=== PATIENT | male | born 1940 | race Caucasian/White ===

== ENCOUNTER 2023-11-12 11:57 | Day surgery (SDC) | payer MEDICARE, OTHER, SELFPAY ==
[2023-11-07 15:15] VITALS: BMI 27.0
[2023-11-08 09:05] VITALS: BMI 27.0
--- NOTE | 2023-11-09 09:55 | HO.ANESPROP2 ---
Documented by User: Ayse Fraire NP 11/09/23 09:55 HPI - Anesthesia Eval Consult details Narrative: 83yo M for Left Cataract Extraction IOL Insertion PCP cleared No previous cataract on record Eliquis for afib PMFSH Past Medical History Medical History (Updated 11/07/23 @ 15:24 by Rosalba Coronado, STACEY) TIA (transient ischemic attack) Bladder cancer Ischemic cardiomyopathy Thoracic aortic aneurysm Myocardial infarction Back pain Elevated cholesterol Gout HTN (hypertension) Dementia CAD (coronary artery disease) BPH (benign prostatic hyperplasia) Afib Surgical History Surgical History (Updated 11/07/23 @ 15:18 by Rosalba Coronado, STACEY) Hx of cholecystectomy Hx of inguinal hernia repair Hx of heart artery stent Social History Social History (Updated 11/07/23 @ 15:20 by Rosalba Coronado RN) Household Members: Spouse Patient Tobacco Use Status: Never used Tobacco Use of substances other than those prescribed or required for medical reasons: No Advance Directives: No Advance Directives Information Provided: Yes Advance Directives on File: No Nutrition Risks: Surgical patient >75years Meds Allergies Allergy/AdvReac Type Severity Reaction Status Date / Time No Known Allergies Allergy Verified 11/12/23 14:23 Home Medications ?Medication ?Instructions ?Recorded ?Confirmed ?Last Taken ?Type allopurinol 100 mg tablet 100 mg PO DAILY 11/07/23 11/07/23 Unknown History amlodipine 5 mg tablet 5 mg PO DAILY 11/07/23 11/07/23 11/12/23 08:00 History apixaban 2.5 mg tablet (Eliquis) 2.5 mg PO BID 11/07/23 11/07/23 Unknown History atorvastatin 40 mg tablet 40 mg PO DAILY 11/07/23 11/07/23 Unknown History finasteride 5 mg tablet 5 mg PO DAILY 11/07/23 11/07/23 Unknown History metoprolol succinate 100 mg 100 mg PO DAILY 11/07/23 11/07/23 11/12/23 08:00 History tablet,extended release 24 hr vitamin B complex 1 tab PO DAILY 11/07/23 11/07/23 Unknown History Exam Height,Weight and Vital Signs: Height 5 ft 9.69 in Weight 84.6 kg Assessment and Plan Assessment Anesthesia Assessment: Chart Reviewed Documented by User: Qian Mendez MD 11/12/23 14:32 [facility] Past Medical History Medical History (Updated 11/07/23 @ 15:24 by Rosalba Coronado RN) TIA (transient ischemic attack) Bladder cancer Ischemic cardiomyopathy Thoracic aortic aneurysm Myocardial infarction Back pain Elevated cholesterol Gout HTN (hypertension) Dementia CAD (coronary artery disease) BPH (benign prostatic hyperplasia) Afib Family History Family history of problems with anesthesia: No Surgical History Surgical History (Updated 11/07/23 @ 15:18 by Rosalba Coronado RN) Hx of cholecystectomy Hx of inguinal hernia repair Hx of heart artery stent History of Problems with Anesthesia: No Social History Social History (Updated 11/07/23 @ 15:20 by Rosalba Coronado RN) Household Members: Spouse Patient Tobacco Use Status: Never used Tobacco Use of substances other than those prescribed or required for medical reasons: No Advance Directives: No Advance Directives Information Provided: Yes Advance Directives on File: No Nutrition Risks: Surgical patient >75years Meds Allergies Allergy/AdvReac Type Severity Reaction Status Date / Time No Known Allergies Allergy Verified 11/12/23 14:23 Home Medications ?Medication ?Instructions ?Recorded ?Confirmed ?Last Taken ?Type allopurinol 100 mg tablet 100 mg PO DAILY 11/07/23 11/07/23 Unknown History amlodipine 5 mg tablet 5 mg PO DAILY 11/07/23 11/07/23 11/12/23 08:00 History apixaban 2.5 mg tablet (Eliquis) 2.5 mg PO BID 11/07/23 11/07/23 Unknown History atorvastatin 40 mg tablet 40 mg PO DAILY 11/07/23 11/07/23 Unknown History finasteride 5 mg tablet 5 mg PO DAILY 11/07/23 11/07/23 Unknown History metoprolol succinate 100 mg 100 mg PO DAILY 11/07/23 11/07/23 11/12/23 08:00 History tablet,extended release 24 hr vitamin B complex 1 tab PO DAILY 11/07/23 11/07/23 Unknown History Exam Airway Mallampati Class: II TM Dist: >3cm Neck ROM: Full Heart: rrr Lungs: cta Assessment and Plan Assessment Anesthesia Assessment: Anesthesia Plan Discussed Final Anesthetic Review Family History of Problems with Anesthesia: No History of Problems with Anesthesia: No NPO: Yes ASA Class: III Final Preanesthetic Review: No Changes in Pt Med Stat, Meds/Allgs Chart Reviewed and Consent Obtained/Reviewed Patient Risk: Low Procedure Risk: Low Anesthetic Plan Anesthetic Plan: MAC: Disposition: Standard PACU
[2023-11-12 14:45] VITALS: BP 121/82; PULSE 58; RESP 16; TEMP 36.9; O2SAT 98
[2023-11-12] MEDS: Tetracaine HCl/PF 0.5% Oph Sol 4 ML DROPS 1 DROP EYE-LEFT (14:52)
[2023-11-12] MEDS: Lactated Ringers 500 ML 50 ML IV (14:52)
[2023-11-12] MEDS: Cyclopentolate 1 % Ophth Sol 2 ML DRPBTL 1 DROP EYE-LEFT ×3 (14:54→15:03)
[2023-11-12] MEDS: Tropicamide 1 % Ophth Sol 3 ML BTL 1 DROP EYE-LEFT ×3 (14:55→15:04)
[2023-11-12] MEDS: Ketorolac Tromethamine 0.5% Op 5 ML DROPS 1 DROP EYE-LEFT ×3 (14:56→15:04)
[2023-11-12] MEDS: Phenylephrine HCL 2.5% Oph SoL 2 ML BOTTLE 1 DROP EYE-LEFT ×3 (14:58→15:05)
--- NOTE | 2023-11-12 16:05 | MHC.SHP ---
Pre-Procedural Eval Section A - 24 Hr Update-Section A only Date of Service: 11/12/23 The patient is an INPATIENT: No Changes since office visit: No Cold of Flu in the past 2 weeks, No New Medical Problems, No Changes in Medication and No Patient answered all questions The patient has been examined within 24 hours of the surgical procedure. The History & Physical has been completed within 30 days and I have reviewed it.: Yes Section B - Complete if H&P > 30 days Chief Complaint: Age-related nuclear cataract, left eye Allergies: Allergies Allergy/AdvReac Type Severity Reaction Status Date / Time No Known Allergies Allergy Verified 11/12/23 14:23 Plan Diagnosis/Plan: Unchanged I have reviewed the history and physical and performed a pertinent physical examination on my patient. No changes have occurred unless specified. Time Spent With Patient Time: Total time managing care of this patient today ____ minutes.
--- NOTE | 2023-11-12 16:07 | HO.PNOPHT ---
Ophthalmology Procedure Procedure Date of Service: 11/12/23 Ophthalmology Viscoelastic: Healon Duet Dual Pack Pro Ophthalmology Lenses: IOL Acrysof MP - MA60AC (16.5) Procedure Notes: PREOPERATIVE DIAGNOSIS: Decreased visual acuity left eye secondary to cataract POSTOPERATIVE DIAGNOSIS: Same PROCEDURE: Left cataract extraction with intraocular lens insertion SURGEON: Isacc London M.D. ANESTHESIA: Topical/MAC ESTIMATED BLOOD LOSS: None COMPLICATIONS: None After obtaining informed consent, the patient was brought to the operation room suite and placed in the supine position. After adequate sedation per anesthesia, topical drops of Tetracaine were given to the left eye. The eye was then prepped and draped in the usual sterile fashion. The operating room microscope was then positioned over the operative eye and a lid speculum placed. A paracentesis was created. Viscoelastic was then instilled into the anterior chamber. A three plane incision was then created temporally, utilizing a 2.85 mm keratome. Capsulotomy forceps were then utilized to create a circular tear capsulotomy. Hydrodissection and hydrodelineation were carried out until adequate mobilization of the nucleus occurred. Phacoemulsification was then utilized to remove the dense central nucleus followed by removal of the cortical material utilizing the automated aspiration irrigation unit. Viscoat elastic was instilled into the posterior capsular bag followed by placement of a posterior chamber intraocular lens without difficulty. The residual Viscoat elastic was then removed utilizing the automated IA machine. The wound was check and found to be watertight. The patient tolerated the procedure well and the lid speculum was removed. Intracameral injection of Vigamox 0.1 mL followed by a subtenon injection of Kenalog-40 0.2 mL were administered. The patient will be seen in the a.m.
[2023-11-12 17:02] VITALS: BP 133/81; PULSE 78; RESP 18; TEMP 36.6; O2SAT 99
== END 2023-11-12 17:05 | disposition home or self-care (01) ==
PROVIDERS: PCP Family Medicine; Visit Provider Ophthalmology
PROC: (CPT 66985; principal; 2023-11-12 12:10)
DX: H25.12 Age-related nuclear cataract, left eye (principal); H54.7 Unspecified visual loss; H43.393 Other vitreous opacities, bilateral; H52.13 Myopia, bilateral; I78.1 Nevus, non-neoplastic; I10 Essential (primary) hypertension; I48.0 Paroxysmal atrial fibrillation; I25.10 Atherosclerotic heart disease of native coronary artery without angina pectoris; Z95.5 Presence of coronary angioplasty implant and graft; F03.90 Unspecified dementia, unspecified severity, without behavioral disturbance, psychotic disturbance, mood disturbance, and anxiety; Z79.01 Long term (current) use of anticoagulants; Z79.899 Other long term (current) drug therapy; Z87.891 Personal history of nicotine dependence
CPT/HCPCS: 66984; J2250; J3010; J3301; V2630

== ENCOUNTER 2023-11-26 10:14 | Day surgery (SDC) | payer MEDICARE, OTHER, SELFPAY ==
[2023-11-08 09:08] VITALS: BMI 27.0
[2023-11-26 10:25] VITALS: BP 132/86; PULSE 89; RESP 18; TEMP 36.9; O2SAT 97
[2023-11-26] MEDS: Phenylephrine HCL 2.5% Oph SoL 2 ML BOTTLE 1 DROP EYE-RIGHT ×3 (10:43→10:45)
[2023-11-26] MEDS: Cyclopentolate 1 % Ophth Sol 2 ML DRPBTL 1 DROP EYE-RIGHT ×3 (10:43→10:45)
[2023-11-26] MEDS: Ketorolac Tromethamine 0.5% Op 10 ML DROPS 1 DROP EYE-RIGHT ×3 (10:43→10:45)
[2023-11-26] MEDS: Tetracaine HCl/PF 0.5% Oph Sol 4 ML DROPS 1 DROP EYE-RIGHT (10:43)
[2023-11-26] MEDS: Lactated Ringers 500 ML 50 ML IV (10:43)
[2023-11-26] MEDS: Tropicamide 1 % Ophth Sol 3 ML BTL 1 DROP EYE-RIGHT ×3 (10:43→10:45)
--- NOTE | 2023-11-26 11:00 | HO.ANESPROP2 ---
Documented by User: Ayse Fraire NP 11/22/23 13:44 HPI - Anesthesia Eval Consult details Narrative: 83yo M for Right Cataract Extraction IOL Insertion Left eye 11/12/23: Fent 50, Midaz 1 Eliquis for afib PMFSH Past Medical History Medical History (Updated 11/07/23 @ 15:24 by Rosalba Coronado RN) TIA (transient ischemic attack) Bladder cancer Ischemic cardiomyopathy Thoracic aortic aneurysm Myocardial infarction Back pain Elevated cholesterol Gout HTN (hypertension) Dementia CAD (coronary artery disease) BPH (benign prostatic hyperplasia) Afib Family History Family history of problems with anesthesia: No Surgical History Surgical History (Updated 11/07/23 @ 15:18 by Rosalba Coronado RN) Hx of cholecystectomy Hx of inguinal hernia repair Hx of heart artery stent History of Problems with Anesthesia: No Social History Social History (Updated 11/07/23 @ 15:20 by Rosalba Coronado RN) Household Members: Spouse Patient Tobacco Use Status: Never used Tobacco Use of substances other than those prescribed or required for medical reasons: No Advance Directives: No (unknown) Advance Directives Information Provided: Yes Nutrition Risks: Surgical patient >75years Meds Allergies Allergy/AdvReac Type Severity Reaction Status Date / Time No Known Allergies Allergy Verified 11/12/23 14:23 Home Medications ?Medication ?Instructions ?Recorded ?Confirmed ?Last Taken ?Type allopurinol 100 mg tablet 100 mg PO DAILY 11/07/23 11/07/23 Unknown History amlodipine 5 mg tablet 5 mg PO DAILY 11/07/23 11/12/23 11/12/23 History apixaban 2.5 mg tablet (Eliquis) 2.5 mg PO BID 11/07/23 11/07/23 Unknown History atorvastatin 40 mg tablet 40 mg PO DAILY 11/07/23 11/07/23 Unknown History finasteride 5 mg tablet 5 mg PO DAILY 11/07/23 11/07/23 Unknown History metoprolol succinate 100 mg 100 mg PO DAILY 11/07/23 11/12/23 11/12/23 History tablet,extended release 24 hr vitamin B complex 1 tab PO DAILY 11/07/23 11/07/23 Unknown History Exam Height,Weight and Vital Signs: Height 5 ft 9.69 in Weight 84.6 kg Assessment and Plan Assessment Anesthesia Assessment: Chart Reviewed Final Anesthetic Review Family History of Problems with Anesthesia: No History of Problems with Anesthesia: No Documented by User: Nesha Osei DO 11/26/23 11:03 [facility] Past Medical History Medical History (Updated 11/07/23 @ 15:24 by Rosalba Coronado RN) TIA (transient ischemic attack) Bladder cancer Ischemic cardiomyopathy Thoracic aortic aneurysm Myocardial infarction Back pain Elevated cholesterol Gout HTN (hypertension) Dementia CAD (coronary artery disease) BPH (benign prostatic hyperplasia) Afib Family History Family history of problems with anesthesia: No Surgical History Surgical History (Updated 11/07/23 @ 15:18 by Rosalba Coronado RN) Hx of cholecystectomy Hx of inguinal hernia repair Hx of heart artery stent History of Problems with Anesthesia: No Social History Social History (Updated 11/07/23 @ 15:20 by Rosalba Coronado RN) Household Members: Spouse Patient Tobacco Use Status: Never used Tobacco Use of substances other than those prescribed or required for medical reasons: No Advance Directives: No (unknown) Advance Directives Information Provided: Yes Nutrition Risks: Surgical patient >75years Meds Allergies Allergy/AdvReac Type Severity Reaction Status Date / Time No Known Allergies Allergy Verified 11/12/23 14:23 Home Medications ?Medication ?Instructions ?Recorded ?Confirmed ?Last Taken ?Type allopurinol 100 mg tablet 100 mg PO DAILY 11/07/23 11/07/23 Unknown History amlodipine 5 mg tablet 5 mg PO DAILY 11/07/23 11/12/23 11/12/23 History apixaban 2.5 mg tablet (Eliquis) 2.5 mg PO BID 11/07/23 11/07/23 Unknown History atorvastatin 40 mg tablet 40 mg PO DAILY 11/07/23 11/07/23 Unknown History finasteride 5 mg tablet 5 mg PO DAILY 11/07/23 11/07/23 Unknown History metoprolol succinate 100 mg 100 mg PO DAILY 11/07/23 11/12/23 11/12/23 History tablet,extended release 24 hr vitamin B complex 1 tab PO DAILY 11/07/23 11/07/23 Unknown History Exam Exam Date and Time: November 26, 2023 1100 Height,Weight and Vital Signs: Height 5 ft 9.69 in Weight 84.6 kg Height 5 ft 9.69 in Weight 84.6 kg Vital Signs Temperature 98.4 F 11/26/23 10:25 Pulse Rate 89 11/26/23 10:25 Respiratory Rate 18 11/26/23 10:25 Blood Pressure 132/86 11/26/23 10:25 Pulse Oximetry 97 11/26/23 10:25 Oxygen Delivery Method Room Air 11/26/23 10:25 Temperature 98.4 F 11/26/23 10:25 Pulse Rate 89 11/26/23 10:25 Respiratory Rate 18 11/26/23 10:25 Blood Pressure 132/86 11/26/23 10:25 Pulse Oximetry 97 11/26/23 10:25 Oxygen Delivery Method Room Air 11/26/23 10:25 Airway Mallampati Class: III TM Dist: >3cm Neck ROM: Full Loose/Missing/Broken Teeth: No (patient denies any loose or broken teeth) Heart: S1S2 Lungs: CTAB Assessment and Plan Assessment Anesthesia Assessment: Anesthesia Plan Discussed and Chart Reviewed Final Anesthetic Review Family History of Problems with Anesthesia: No History of Problems with Anesthesia: No NPO: Yes ASA Class: III Final Preanesthetic Review: No Changes in Pt Med Stat, Meds/Allgs Chart Reviewed, Consent Obtained/Reviewed and Anes Risks/Benef Reviewed Patient Risk: Intermediate Procedure Risk: Low Anesthetic Plan Anesthetic Plan: MAC: and Agree w/ Assess. and Plan Disposition: Standard PACU
--- NOTE | 2023-11-26 11:47 | MHC.SHP ---
Pre-Procedural Eval Section A - 24 Hr Update-Section A only Date of Service: 11/26/23 The patient is an INPATIENT: No Changes since office visit: No Cold of Flu in the past 2 weeks, No New Medical Problems, No Changes in Medication and No Patient answered all questions The patient has been examined within 24 hours of the surgical procedure. The History & Physical has been completed within 30 days and I have reviewed it.: Yes Section B - Complete if H&P > 30 days Chief Complaint: Age-related nuclear cataract, right eye Allergies: Allergies Allergy/AdvReac Type Severity Reaction Status Date / Time No Known Allergies Allergy Verified 11/12/23 14:23 Plan Diagnosis/Plan: Unchanged I have reviewed the history and physical and performed a pertinent physical examination on my patient. No changes have occurred unless specified. Time Spent With Patient Time: Total time managing care of this patient today ____ minutes.
--- NOTE | 2023-11-26 12:12 | P.PCNO_ITS ---
Ophthalmology Procedure Procedure Date of Service: 11/26/23 Ophthalmology Viscoelastic: Healon Duet Dual Pack Pro Ophthalmology Lenses: IOL Acrysof MP - MA60AC (17) Procedure Notes: PREOPERATIVE DIAGNOSIS: Decreased visual acuity right eye secondary to cataract POSTOPERATIVE DIAGNOSIS: Same PROCEDURE: Right cataract extraction with intraocular lens insertion SURGEON: Isacc London M.D. ANESTHESIA: Topical/MAC ESTIMATED BLOOD LOSS: None COMPLICATIONS: None After obtaining informed consent, the patient was brought to the operating room suite and placed in the supine position. After adequate sedation per anesthesia, topical drops of Tetracaine were given to the right eye. The eye was then prepped and draped in the usual sterile fashion. The operating room microscope was then positioned over the operative eye and a lid speculum placed. A paracentesis was created. Viscoelastic was then instilled into the anterior chamber. A three plane incision was then created temporally, utilizing a 2.85 mm keratome. Capsulotomy forceps were then utilized to create a circular tear capsulotomy. Hydrodissection and hydrodelineation were carried out until adequate mobilization of the nucleus occurred. Phacoemulsification was then utilized to remove the dense central nucl eus followed by removal of the cortical material utilizing the automated aspiration irrigation unit. Viscoelastic was instilled into the posterior capsular bag followed by placement of a posterior chamber intraocular lens without difficulty. The residual Viscoelastic was then removed utilizing the automated IA machine. The wound was checked and found to be watertight. The patient tolerated the procedure well and the lid speculum was removed. Intracameral injection of Vigamox 0.1 mL followed by a subtenon injection of Kenalog-40 0.2 mL were administered. The patient will be seen in the a.m.
[2023-11-26 12:46] VITALS: BP 143/94; PULSE 90; RESP 16; TEMP 36.5; O2SAT 97
== END 2023-11-26 12:48 | disposition home or self-care (01) ==
PROVIDERS: PCP Family Medicine; Visit Provider Ophthalmology
PROC: (CPT 66985; principal; 2023-11-26 11:50)
DX: H25.11 Age-related nuclear cataract, right eye (principal); I10 Essential (primary) hypertension
CPT/HCPCS: 66984; J3010; J3301; V2630

== ENCOUNTER 2024-01-03 15:25 | Inpatient (IN) | payer MEDICARE, OTHER, SELFPAY ==
[2024-01-03] VITALS (7 sets, daily range): BP systolic 115–151; BP diastolic 76–93; PULSE 83–114; RESP 15–19; TEMP 36.5–36.9; O2SAT 95–99; BMI 30.3
--- NOTE | ~2024-01-03 | XR_ITS ---
EXAMINATION: XR CHEST CLINICAL INFORMATION: Chest pain COMPARISON: None available. TECHNIQUE: Frontal view of the chest was obtained. FINDINGS: Overlying EKG wires. The lungs are adequately expanded. No focal consolidation. No pleural effusion, edema or pneumothorax. The cardiomediastinal silhouette is within normal limits. No acute osseous abnormality. XR/XR chest 1V IMPRESSION: No acute pulmonary disease.
--- NOTE | ~2024-01-03 | CT_ITS ---
EXAMINATION: CT HEAD WITHOUT CONTRAST CLINICAL INFORMATION: Change in mental status. Syncope. COMPARISON: None available. TECHNIQUE: Contiguous axial imaging was performed from the skull base to vertex without intravenous administration of contrast. This CT examination was performed using dose optimization techniques as appropriate, variously including the following: *Automated exposure control *Adjustment of mA and/or kV according to patient size (this includes techniques or standardized protocols for targeted exams where dose is matched to indication/reason for exam; i.e. extremities or head) *Use of iterative reconstruction technique DLP: 675 mGy-cm FINDINGS: There is no acute intracranial hemorrhage. There is no evidence of acute/subacute cerebral or cerebellar infarction. There is no midline shift or mass effect. No extra-axial fluid collection. There is mild microvascular ischemic change. The ventricles are normal in size. The ocular lenses are surgically absent. The orbits are otherwise unremarkable. The calvarium is intact. The mastoid air cells are well aerated. There are minimal scattered paranasal sinus mucosal disease. CT/CT head/brain wo IV con IMPRESSION: No acute intracranial pathology. Mild microvascular ischemic change.
[2024-01-03 15:43] LABS: Glucose, Whole Blood 117 mg/dL (60-115)
--- NOTE | 2024-01-03 15:48 | ECG_ITS ---
Test Reason : SYNCOPAL EPISODE Blood Pressure : / mmHG Vent. Rate : 095 BPM Atrial Rate : 000 BPM P-R Int : 000 ms QRS Dur : 114 ms QT Int : 386 ms P-R-T Axes : 000 -57 086 degrees QTc Int : 485 ms Atrial fibrillation Left anterior fascicular block Minimal voltage criteria for LVH, may be normal variant ( Carlock product ) Nonspecific ST and T wave abnormality Abnormal ECG No previous ECGs available Referred By: Marya Ramirez Electronically Signed By:Srini Kiser
--- NOTE | 2024-01-03 15:50 | MHC.EDTECH ---
This tech performed EKG at providers request. Before order was entered.
--- NOTE | 2024-01-03 15:59 | ED_ITS ---
HPI - Altered Mental Status General Chief Complaint: Altered Mental Status Stated Complaint: Period of unresponsiveness, respond to pain EMS Time Seen by Provider: 01/03/24 15:46 History of Present Illness HPI narrative: Patient is an 83-year-old male with a history of bladder cancer. History of ischemic cardiomyopathy. History of myocardial infarction. History of atrial fibrillation currently on Eliquis. History of dementia history of coronary artery disease presents today with having episodes of being found unresponsive. Patient was being found unresponsive on his next to the staircase. On EMS arrival patient was very extremely difficult to arouse. Attempted a sternal rub no avail. Patient is noted to have a sugar in the 130s range. Sent to the ED. Upon getting on the ambulance patient became more awake alert. Upon arrival patient is now awake alert oriented unsure as to what exactly transpired. No history of seizures in the past. No fever no chills. No coughing or congestion or upper respiratory symptoms. Nothing similar in the past. Patient is unsure of what the events that transpired today. TIA (transient ischemic attack) Bladder cancer Ischemic cardiomyopathy Thoracic aortic aneurysm Myocardial infarction Back pain Elevated cholesterol Gout HTN (hypertension) Dementia CAD (coronary artery disease) BPH (benign prostatic hyperplasia) Afib Related Data Home Medications ?Medication ?Instructions ?Recorded ?Confirmed allopurinol 100 mg tablet 100 mg PO DAILY 11/07/23 11/07/23 amlodipine 5 mg tablet 5 mg PO DAILY 11/07/23 11/12/23 apixaban 2.5 mg tablet (Eliquis) 2.5 mg PO BID 11/07/23 11/07/23 atorvastatin 40 mg tablet 40 mg PO DAILY 11/07/23 11/07/23 finasteride 5 mg tablet 5 mg PO DAILY 11/07/23 11/07/23 metoprolol succinate 100 mg 100 mg PO DAILY 11/07/23 11/12/23 tablet,extended release 24 hr vitamin B complex 1 tab PO DAILY 11/07/23 11/07/23 Allergies Allergy/AdvReac Type Severity Reaction Status Date / Time No Known Allergies Allergy Verified 01/03/24 15:46 Review of Systems 2 Review of Systems: Positive generalized malaise Positive episode of being unresponsive PMFSH Past Medical History Attestation statement: The following information was validated with the patient. Medical History TIA (transient ischemic attack) Bladder cancer Ischemic cardiomyopathy Thoracic aortic aneurysm Myocardial infarction Back pain Elevated cholesterol Gout HTN (hypertension) Dementia CAD (coronary artery disease) BPH (benign prostatic hyperplasia) Afib Surgical History Hx of cholecystectomy Hx of inguinal hernia repair Hx of heart artery stent Social History Social History Household Members: Spouse Patient Tobacco Use Status: Never used Tobacco Smoked in Last 30 Days: No Use of substances other than those prescribed or required for medical reasons: No Advance Directives: Yes Advance Directives Information Provided: No Advance Directives on File: No Physical Exam ED Vital Signs: Vital Signs - 24 hr 01/03/24 15:39 01/03/24 18:33 Temperature 97.7 F 98.5 F Pulse Rate 87 97 Respiratory Rate 18 18 Blood Pressure 115/76 141/88 H Pulse Oximetry 99 98 Oxygen Delivery Method Room Air Room Air BMI result Body Mass Index 30.3 Appearance: Alert. Oriented X3. No acute distress. Eyes: Pupils equal, round and reactive to light. ENT: Pharynx normal. Neck: Normal inspection. Neck supple. No lymph nodes noted. No crepitus CVS: Normal heart rate and rhythm. Pulses normal. Normal S1 and S2 Respiratory: No respiratory distress. Breath sounds normal. No Wheezing. No rales Abdomen: Soft and nontender. No rigidity. No distention. good BS x4 Skin: Skin warm and dry. Normal skin color. Normal skin turgor. Extremities: No lower extremity edema. Neurovascular intact to all extremities. No Lacerations. No Rash Neuro: Oriented X 3. No motor deficit. No sensory deficit. Moving all extermities. No slurred speech Medications Administered Discontinued Medications Generic Name Dose Route Start Last Admin Trade Name Freq PRN Reason Stop Dose Admin Sodium Chloride 500 mls @ 999 mls/hr 01/03/24 16:00 01/03/24 17:37 Ns IV 01/03/24 16:30 Infused .Q31M MORIAH Infusion Sodium Chloride 500 mls @ 999 mls/hr 01/03/24 16:30 01/03/24 17:37 Ns IV 01/03/24 17:00 999 mls/hr .Q31M MORIAH Administration Medical Decision Making Medical Decision Making MDM Narrative: Patient had a syncopal episode was found on the ground. On EMS arrival patient was unresponsive. Upon arrival in the ED patient is now awake alert. Discussed with family patient's mental status is proximally baseline has a history of AFib patient's EKG consistent with atrial fibrillation he is on blood thinners a CT scan of the head was done it showed no evidence of bleeding by my interpretation. X-ray showed no acute focal infiltrate. Patient's lactate was 2.1 less likely patient had a seizure patient does not have any signs of infection after a bolus of 1 L of fluid patient's lactate was 1.6. Patient's symptoms not consistent with sepsis. Thyroid was normal patient's troponin is normal monitor in the ED will admit patient for further evaluation. Case consulted by the hospitalist team Differential Diagnosis Differential Diagnoses: The differential diagnosis associated with the presentation includes Syncope, head injury, arrhythmia, ACS Admission/Observation Consideration of admission/observation: Escalation of care including admission/observation considered Consult Healthcare Provider Management of the patient was discussed with: Hospitalist Lab Data [facility] Lab Attestation statement: I reviewed the patient's lab results. 01/03/24 15:55 01/03/24 15:55 Labs: Lab Results 01/03/24 01/03/24 01/03/24 Range/Units 15:36 15:55 16:17 WBC 7.1 (4.8-10.8) X10*3/uL RBC 4.73 (4.60-5.80) X10*6/uL Hgb 16.0 (14.0-18.0) g/dl Hct 45.1 (42.0-52.0) % MCV 95.3 (80.0-98.0) fL MCH 33.8 H (27.0-33.0) pg MCHC 35.5 (31.0-36.0) g/dl RDW 13.5 (11.0-16.0) % Plt Count 195 (160-400) X10*3/uL MPV 9.5 (9.4-12.4) fL Immature Gran % (Auto) 0.3 (0.0-0.4) % Neut % (Auto) 70.7 (45-73) % Lymph % (Auto) 20.6 (20-40) % [place] % (Auto) 6.6 (2-11) % Eos % (Auto) 1.1 (0-4) % Baso % (Auto) 0.7 (0-2) % Lymph # (Auto) 1.5 (1.2-4.9) X10*3/uL [place] # (Auto) 0.5 (0.1-1.2) X10*3/uL Eos # (Auto) 0.1 (0.0-0.4) X10*3/uL Baso # (Auto) 0.1 (0.0-0.2) X10*3/uL Abs Immat Gran (auto) 0.02 (0.00-0.03) X10*3/uL Absolute Neuts (auto) 5.0 (2.0-8.3) x10*3/uL Absolute Nucleated RBC 0.000 (0.0-0.012) X10*3/uL Nucleated RBC % (auto) 0.0 (0.0-0.2) /100WBC PT 16.9 H (11.1-13.3) SEC INR 1.4 H (0.9-1.1) Sodium 141 (135-145) mmol/L Potassium 4.3 (3.3-5.1) mmol/L Chloride 110 H (96-108) mmol/L Carbon Dioxide 22 (22-29) mmol/L Anion Gap 13 (12-20) BUN 19 H (9-16) mg/dL Creatinine 1.68 H (0.5-1.4) mg/dL Estim Creat Clear Calc 32.3 Estimated GFR 39 POC Glucose 117 H (60-115) mg/dL Random Glucose 123 H (60-115) mg/dL Lactic Acid 2.1 H* (0.5-2.0) mmol/L Lactic Acid F/U @ 2Hr (0.5-2.0) mmol/L Calcium 9.3 (8.4-10.2) mg/dL Total Bilirubin 2.0 H (0.0-1.0) mg/dL Direct Bilirubin 0.2 (0.0-0.5) mg/dL AST 27 (5-37) U/L ALT 23 (0-40) U/L Alkaline Phosphatase 74 (39-117) U/L Ammonia 29 (13-55) umol/L Troponin I High Sens 8.1 (<3.5-35.0) ng/L Total Protein 7.2 (6.5-8.0) g/dL Albumin 4.3 (3.5-5.0) g/dL Lipase 21 (8-78) U/L TSH 1.47 (0.32-4.0) uIU/mL Urine Color Urine Appearance Urine pH (5.0-9.0) Ur Specific [place] (1.005-1.025) Urine Protein (Neg-Trace) mg/dL Urine Glucose (UA) (Negative) mg/dL Urine Ketones (Negative) mg/dL Urine Blood (Negative) Urine Nitrite (Negative) Ur Leukocyte Esterase (Negative) Urine RBC (0-2) /HPF Urine WBC (0-5) /HPF Ur Squamous Epith Cells (0-2) /HPF Urine Bacteria (None Seen) Hyaline Casts (0-2) /LPF 01/03/24 01/03/24 Range/Units 18:28 18:30 WBC (4.8-10.8) X10*3/uL RBC (4.60-5.80) X10*6/uL Hgb (14.0-18.0) g/dl Hct (42.0-52.0) % MCV (80.0-98.0) fL MCH (27.0-33.0) pg MCHC (31.0-36.0) g/dl RDW (11.0-16.0) % Plt Count (160-400) X10*3/uL MPV (9.4-12.4) fL Immature Gran % (Auto) (0.0-0.4) % Neut % (Auto) (45-73) % Lymph % (Auto) (20-40) % [place] % (Auto) (2-11) % Eos % (Auto) (0-4) % Baso % (Auto) (0-2) % Lymph # (Auto) (1.2-4.9) X10*3/uL [place] # (Auto) (0.1-1.2) X10*3/uL Eos # (Auto) (0.0-0.4) X10*3/uL Baso # (Auto) (0.0-0.2) X10*3/uL Abs Immat Gran (auto) (0.00-0.03) X10*3/uL Absolute Neuts (auto) (2.0-8.3) x10*3/uL Absolute Nucleated RBC (0.0-0.012) X10*3/uL Nucleated RBC % (auto) (0.0-0.2) /100WBC PT (11.1-13.3) SEC INR (0.9-1.1) Sodium (135-145) mmol/L Potassium (3.3-5.1) mmol/L Chloride (96-108) mmol/L Carbon Dioxide (22-29) mmol/L Anion Gap (12-20) BUN (9-16) mg/dL Creatinine (0.5-1.4) mg/dL Estim Creat Clear Calc Estimated GFR POC Glucose (60-115) mg/dL Random Glucose (60-115) mg/dL Lactic Acid (0.5-2.0) mmol/L Lactic Acid F/U @ 2Hr 1.6 (0.5-2.0) mmol/L Calcium (8.4-10.2) mg/dL Total Bilirubin (0.0-1.0) mg/dL Direct Bilirubin (0.0-0.5) mg/dL AST (5-37) U/L ALT (0-40) U/L Alkaline Phosphatase (39-117) U/L Ammonia (13-55) umol/L Troponin I High Sens (<3.5-35.0) ng/L Total Protein (6.5-8.0) g/dL Albumin (3.5-5.0) g/dL Lipase (8-78) U/L TSH (0.32-4.0) uIU/mL Urine Color Yellow Urine Appearance Clear Urine pH 5.5 (5.0-9.0) Ur Specific [place] 1.015 (1.005-1.025) Urine Protein Negative (Neg-Trace) mg/dL Urine Glucose (UA) Negative (Negative) mg/dL Urine Ketones Negative (Negative) mg/dL Urine Blood Negative (Negative) Urine Nitrite Negative (Negative) Ur Leukocyte Esterase Negative (Negative) Urine RBC 0-2 (0-2) /HPF Urine WBC 0-5 (0-5) /HPF Ur Squamous Epith Cells 0-2 (0-2) /HPF Urine Bacteria None Seen (None Seen) Hyaline Casts 3-5 (0-2) /LPF Independent Interpretation I performed an independent interpretation of an: EKG (Atrial fibrillation heart rate is 100), Plain X-Ray (Chest x-ray showed no focal infiltrate) and CT Scan (CT scan of the head was grossly negative for any acute evidence of bleeding) Radiology Impression Discussion of test interpretation with radiology: I have reviewed the radiologist's reading. Independent Historian Clinical information obtained from an independent historian. History obtained from or confirmed by: EMS External Record Review External record reviewed: Inpatient record Discharge Plan Discharge Prescriptions: No Action atorvastatin 40 mg tablet 40 mg PO DAILY metoprolol succinate 100 mg tablet extended release 24 hr 100 mg PO DAILY amlodipine 5 mg tablet 5 mg PO DAILY allopurinol 100 mg tablet 100 mg PO DAILY vitamin B complex Tablet 1 tab PO DAILY finasteride 5 mg tablet 5 mg PO DAILY Eliquis 2.5 mg tablet 2.5 mg PO BID Print Language: Beninese
[2024-01-03 16:02] LABS: MANUAL DIFF FLAG NO
[2024-01-03 16:04] LABS: Basophils Absolute Auto 0.1 X10*3/uL (0.0-0.2); Basophils Percent Auto 0.7 % (0-2); Eosinophils Absolute Auto 0.1 X10*3/uL (0.0-0.4); Eosinophils Percent Auto 1.1 % (0-4); Hematocrit 45.1 % (42.0-52.0); Imm Gran Abs Auto 0.02 X10*3/uL (0.00-0.03); Imm Gran Pct Auto 0.3 % (0.0-0.4); Lymphocytes Absolute Auto 1.5 X10*3/uL (1.2-4.9); Lymphocytes Percent Auto 20.6 % (20-40); Mean Corpuscular HGB Conc 35.5 g/dl (31.0-36.0); Mean Corpuscular Hemoglobin 33.8 pg (27.0-33.0); Mean Corpuscular Volume 95.3 fL (80.0-98.0); Mean Platelet Volume 9.5 fL (9.4-12.4); Monocytes Absolute Auto 0.5 X10*3/uL (0.1-1.2); Monocytes Percent Auto 6.6 % (2-11); Neutrophils Percent Auto 70.7 % (45-73); Platelet Count 195 X10*3/uL (160-400); Red Blood Count 4.73 X10*6/uL (4.60-5.80); Red Cell Distribution Width 13.5 % (11.0-16.0); White Blood Count 7.1 X10*3/uL (4.8-10.8)
[2024-01-03 16:19] LABS: Alanine Aminotransferase 23 U/L (0-40); Albumin Level 4.3 g/dL (3.5-5.0); Alkaline Phosphatase 74 U/L (39-117); Anion Gap 13 (12-20); Aspartate Amino Transferase 27 U/L (5-37); Bilirubin Direct 0.2 mg/dL (0.0-0.5); Blood Urea Nitrogen 19 mg/dL (9-16); Calcium 9.3 mg/dL (8.4-10.2); Carbon Dioxide 22 mmol/L (22-29); Chloride 110 mmol/L (96-108); Creatinine Clr Calc Pharmacy 32.3; Estimated Glomerular Filt Rate 39; Glucose Random 123 mg/dL (60-115); Lactic Acid 2.1 mmol/L (0.5-2.0); Lipase 21 U/L (8-78); Potassium 4.3 mmol/L (3.3-5.1); Sodium 141 mmol/L (135-145); Total Protein 7.2 g/dL (6.5-8.0)
[2024-01-03 16:26] LABS: Troponin-I High Sensitivity 8.1 ng/L (<3.5-35.0)
[2024-01-03 16:31] LABS: Ammonia 29 umol/L (13-55); INTERNATIONAL NORM RATIO 1.4 (0.9-1.1); Prothrombin Time 16.9 SEC (11.1-13.3)
[2024-01-03 16:40] LABS: TSH reflex Free T4 1.47 uIU/mL (0.32-4.0)
[2024-01-03] MEDS: 0.9 % Sodium Chloride 500 ML 999 ML IV ×2 (17:06→17:37)
[2024-01-03 18:00] LABS: Reflex Lactate? Lactic Acid Added
--- NOTE | 2024-01-03 18:42 | MHC.EDTECH ---
Hourly rounds and vitals completed, condom catheter was put on, patient is resting comfortably now
[2024-01-03 18:45] LABS: ~Lactic Acid-LAB USE ONLY 1.6 mmol/L (0.5-2.0)
[2024-01-03 18:47] LABS: Appearance Urine Clear; Color Urine Yellow; Glucose Urine UA Negative (Negative); Leukocyte Esterase Urine Negative (Negative); Nitrite Urine Negative (Negative); PH 5.5 (5.0-9.0); Specific Gravity - Urine 1.015 (1.005-1.025); Urine Blood Negative (Negative); Urine Ketones Negative (Negative); Urine Protein Negative (Neg-Trace)
--- NOTE | 2024-01-03 19:10 | PC.NURSE ---
spoke w son: pt alert and oriented to person/place at baseline per son sounds like pts mental status is WNL. per son pt over exerted himself in the heat this afternoon trying to move a trash can and had syncopal shortly after. pt has been advised by family members to avoid heat and drink flds and gatorade. pt resting quietly, denies any needs at this time.
[2024-01-03 19:17] LABS: Bacteria Urine None Seen (None Seen); RBC Urine 0-2 /HPF (0-2); Squamous Epithelial Cell Urine 0-2 /HPF (0-2); WBC Urine 0-5 /HPF (0-5)
--- NOTE | 2024-01-03 20:27 | PHA.MEDREC ---
Pharmacy Consult ? Medication Reconciliation Pharmacy has completed the medication reconciliation. Spoke to Patient anny Vargas to confirm med list.
--- NOTE | 2024-01-03 20:36 | P.HPHOSP_ITS ---
History of Present Illness Date of Service: 01/03/24 Attending physician on admission: Js Brooks Chief Complaint: Loss of consciousness Clint Jane is a very pleasant 83 years old man with past medical history significant for CAD, cardiomyopathy, atrial fibrillation on chronic anticoagulation with Eliquis essential hypertension was brought to the emergency department via EMS after he fainted today. He was found by his who called EMS. The patient is a vague historian. I spoke with his son, Sam, over the phone who provided most of the patient past medical history and HPI. Son stated that when he is that returned to the house and seated on his lifting shortness he lost consciousness. The patient does not remember what happened and denied any symptoms such as headache, palpitations, chest pain, cough, nausea, vomiting, diarrhea, abdominal pain dizziness or shortness on breath. In the ED, he was found to have rapid atrial fibrillation. Last blood pressure is 151/93. Blood workup showed normal white count, hemoglobin platelets. There are no significant electrolyte imbalances. Creatinine is 1.68 (will investigate his baseline). His initial lactic acid was 2.1 is normalized. Ammonia, troponin, albumin, TSH and LFTs are normal. Urinalysis showed no evidence of urinary tract infection. ECG showed atrial fibrillation. CXR is negative. Head CT scan showed no acute intracranial abnormalities. ED tx: NS 2 L bolus. Review of Systems 2 Review of Systems: Yes Unobtainable due to mental status [facility] Medical History TIA (transient ischemic attack) Bladder cancer Ischemic cardiomyopathy Thoracic aortic aneurysm Myocardial infarction Back pain Elevated cholesterol Gout HTN (hypertension) Dementia CAD (coronary artery disease) BPH (benign prostatic hyperplasia) Afib Surgical History Hx of cholecystectomy Hx of inguinal hernia repair Hx of heart artery stent Social History Household Members: Spouse Patient Tobacco Use Status: Never used Tobacco Smoked in Last 30 Days: No Use of substances other than those prescribed or required for medical reasons: No Advance Directives: Yes Advance Directives Information Provided: No Advance Directives on File: No Nutrition Risks: No Nutritional Risk Meds Allergies Allergy/AdvReac Type Severity Reaction Status Date / Time No Known Allergies Allergy Verified 01/03/24 15:46 Active Medications: Current Medications Acetaminophen (Acetaminophen 325 Mg Tablet) 975 mg PO Q6H PRN PRN Reason: Pain, Mild (Pain Scale 1-3), fever or headache Melatonin (Melatonin 3 Mg Tablet) 6 mg PO BEDTIME PRN PRN Reason: Insomnia Sodium Chloride (0.9 % Sodium Chloride Flush 3 Ml Syringe) 3 ml IVFLUSH QSHIFT [facility] Home Medications ?Medication ?Instructions ?Recorded ?Confirmed ?Last Taken ?Type allopurinol 100 mg tablet 100 mg PO DAILY 11/07/23 01/03/24 01/03/24 History apixaban 2.5 mg tablet (Eliquis) 2.5 mg PO BID 11/07/23 01/03/24 01/03/24 History atorvastatin 40 mg tablet 40 mg PO DAILY 11/07/23 01/03/24 01/03/24 History finasteride 5 mg tablet 5 mg PO DAILY 11/07/23 01/03/24 01/03/24 History metoprolol succinate 100 mg 100 mg PO DAILY 11/07/23 01/03/24 01/03/24 History tablet,extended release 24 hr vitamin B complex 1 tab PO DAILY 11/07/23 01/03/24 01/03/24 History amlodipine 2.5 mg tablet 2.5 mg PO DAILY 01/03/24 01/03/24 01/03/24 History Physical Exam 2 Vital Signs and Narrative: Vital Signs: Last Vital Signs Temp 98.5 F 01/03/24 18:33 Pulse 83 01/03/24 19:53 Resp 15 01/03/24 19:53 BP 151/93 H 01/03/24 19:53 Pulse Ox 97 01/03/24 19:53 O2 Del Method Room Air 01/03/24 19:53 BMI result Body Mass Index 30.3 Constitutional - Awake and Alert, No apparent distress. He is anxious as he is worried about this son and . Very talkative and pleasant. HEENT - PERRL, EOMI. Dry oral mucosa. Normal sclerae. Heart - Irregular rhythm, tachycardic. No murmur. Lung - Normal lung expansion, Normal respiratory effort, No respiratory distress, CTA bilaterally Abdomen - NT / ND; +BS; No rebound or guarding Extremities - no calf tenderness bilaterally, no swelling Musculoskeletal - Normal inspection, normal ROM Skin - Warm/Dry Neurological - Alert & oriented x3. No facial droop. No focal weakness grossly noted. Normal speech. Psychological - Appropriate affect Results Labs 01/03/24 15:55 01/03/24 15:55 Labs: Laboratory Results - last 24 hr 01/03/24 01/03/24 01/03/24 15:36 15:55 16:17 MCV 95.3 MCH 33.8 H MCHC 35.5 RDW 13.5 Plt Count 195 MPV 9.5 Immature Gran % (Auto) 0.3 Neut % (Auto) 70.7 Lymph % (Auto) 20.6 [place] % (Auto) 6.6 Eos % (Auto) 1.1 Baso % (Auto) 0.7 Lymph # (Auto) 1.5 [place] # (Auto) 0.5 Eos # (Auto) 0.1 Baso # (Auto) 0.1 Abs Immat Gran (auto) 0.02 Absolute Neuts (auto) 5.0 Absolute Nucleated RBC 0.000 Nucleated RBC % (auto) 0.0 PT 16.9 H INR 1.4 H Anion Gap 13 Estim Creat Clear Calc 32.3 Estimated GFR 39 POC Glucose 117 H Random Glucose 123 H Lactic Acid 2.1 H* Lactic Acid F/U @ 2Hr Calcium 9.3 Total Bilirubin 2.0 H Direct Bilirubin 0.2 AST 27 ALT 23 Alkaline Phosphatase 74 Ammonia 29 Troponin I High Sens 8.1 Total Protein 7.2 Albumin 4.3 Lipase 21 TSH 1.47 Urine Color Urine Appearance Urine pH Ur Specific [place] Urine Protein Urine Glucose (UA) Urine Ketones Urine Blood Urine Nitrite Ur Leukocyte Esterase Urine RBC Urine WBC Ur Squamous Epith Cells Urine Bacteria Hyaline Casts 01/03/24 01/03/24 18:28 18:30 MCV MCH MCHC RDW Plt Count MPV Immature Gran % (Auto) Neut % (Auto) Lymph % (Auto) [place] % (Auto) Eos % (Auto) Baso % (Auto) Lymph # (Auto) [place] # (Auto) Eos # (Auto) Baso # (Auto) Abs Immat Gran (auto) Absolute Neuts (auto) Absolute Nucleated RBC Nucleated RBC % (auto) PT INR Anion Gap Estim Creat Clear Calc Estimated GFR POC Glucose Random Glucose Lactic Acid Lactic Acid F/U @ 2Hr 1.6 Calcium Total Bilirubin Direct Bilirubin AST ALT Alkaline Phosphatase Ammonia Troponin I High Sens Total Protein Albumin Lipase TSH Urine Color Yellow Urine Appearance Clear Urine pH 5.5 Ur Specific [place] 1.015 Urine Protein Negative Urine Glucose (UA) Negative Urine Ketones Negative Urine Blood Negative Urine Nitrite Negative Ur Leukocyte Esterase Negative Urine RBC 0-2 Urine WBC 0-5 Ur Squamous Epith Cells 0-2 Urine Bacteria None Seen Hyaline Casts 3-5 Imaging Radiologist's Impressions: Impressions Chest X-Ray 01/03/24 16:43 IMPRESSION: No acute pulmonary disease. Head CT 01/03/24 17:45 IMPRESSION: No acute intracranial pathology. Mild microvascular ischemic change. Assessment and Plan (1) Syncope: Qualifiers: Syncope type: unspecified Qualified Code(s): R55 - Syncope and collapse Status: Acute (2) Atrial fibrillation with rapid ventricular response: Status: Acute Plan Clint Jane is a very pleasant 83 y/o man with PMHx significant for coronary arteriosclerosis and paroxysmal atrial fibrillation admitted with: * Syncope, suspecting cardiac source/arrhythmia. Admit to hospitalist service. Telemetry. Pulse oximetry. Bed rest. Fall precautions. Check TTE. Check orthostatic vital signs q shift. Cardiology consult. * Elevated creatinine and BUN. Possible SHANNON (baseline creatinine, not available on our system, will review [facility] record * Atrial fibrillation with rapid ventricular response. Continue metoprolol and Eliquis. * Essential hypertension. Continue metoprolol and amlodipine. * Mixed hyperlipidemia. Continue statin. * Gout. Continue allopurinol. * BPH. Continue finasteride. * Dementia. Not on medication for this. * History of intention tremor. DVT prophylaxis: Eliquis Code status: Full Patient will need hospitalization for at least 2 midnights for syncopal evaluation and rapid atrial fibrillation treatment with continuous cardiac vital signs monitoring, rate control agents, imaging and subspecialty evaluation. Quality Stroke Does the patient have a stroke diagnosis?: No VTE Prior VTE?: No VTE Risk Level:: Medical - moderate - high VTE Device Contraindication: Treatment Not Indicated VTE Drug Contraindication: N/A - Med Ordered
--- NOTE | 2024-01-03 20:45 | PC.NURSE ---
pt reports he is feeling anxious and guilty about leaving his alone at home. Dr. Jey Brooks in contact with son to ensure is okay and message relayed to patient. pt is calm/cooperative resting comfortably in stretcher. afib on monitor hr ranging from 105-110s, MD aware. pt also requests something to help sleep, MD aware, PRN Melatonin ordered. pt is axox3 denies cp/sob/n/v/d/dizziness/ROGEL at this time. call frederick within reach.
[2024-01-03] MEDS: Melatonin 3 MG TABLET 6 MG PO (21:28)
[2024-01-03] MEDS: Metoprolol Tartrate 25 MG TABLET PO (21:30)
[2024-01-03] MEDS: Apixaban 2.5 MG TABLET PO (21:30)
[2024-01-04] VITALS (9 sets, daily range): BP systolic 99–164; BP diastolic 70–105; PULSE 94–114; RESP 15–24; TEMP 36.4–36.6; O2SAT 97–98
--- NOTE | 2024-01-04 02:20 | PC.NURSE ---
PT AMBULATED TO BATHROOM WITH STEADY GAIT. PT REPORTED HAD URGE TO HAVE bm BUT UNABLE TO. ASSISTED BACK TO STRETCHER AND PT REQUESTED BED STAFFORD TO ATTEMPT BM.
--- NOTE | 2024-01-04 07:00 | CA_ITS ---
Transthoracic Echocardiogram Patient (Last, First, Middle): Clint Jane, Gender: Male Date of : 1940 Age: 83 Procedure Date: 01/04/2024 Procedure Type: Transthoracic Echocardiogram Location: ER Height: 177.8 cm Weight: 79.83 kg BSA: 1.98 m2 Heart Rate: bpm BP: 139 / 92 mmHg Lens Generator: Referring MD: Js Brooks MD Symptoms: Syncope Study Quality: Adequate Conclusions: - Normal left ventricular cavity size. There is mildly increased left ventricular wall thickness. The left ventricular systolic function is borderline reduced. The visually estimated ejection fraction is between 45-50%. - Normal right ventricular cavity size and systolic function. - There is mild aortic valve stenosis. Findings Left Ventricle Normal left ventricular cavity size. There is mildly increased left ventricular wall thickness. The left ventricular systolic function is borderline reduced. The visually estimated ejection fraction is between 45 50%. There is no evidence of regional wall motion abnormalities. Diastolic function is indeterminate on the basis of available data. Right Ventricle Normal right ventricular cavity size and systolic function. Atria The left atrium is normal in size. Aortic Valve The aortic valve was not well visualized. There is mild calcification of the aortic valve. There is mild aortic valve stenosis. There is trace (trivial) aortic valve regurgitation. Mitral Valve The mitral valve appears normal. There is mild mitral valve regurgitation. There is no mitral valve stenosis. Pulmonic Valve The pulmonic valve is likely normal. Tricuspid Valve Normal tricuspid valve structure. Tricuspid regurgitation envelope is inadequate for calculation of right ventricular systolic pressure. Normal right atrial pressure. Venous The inferior vena cava is normal in size and collapses greater than 50% with inspiration. Pericardium/Pleural There is no evidence of pericardial effusion. Prior Study Comparison No prior study available for comparison. Measurements 2D Linear Measurements IVSd: 1.13 0.6-0.9/0.6-1.0 cm LVIDd: 5.10 3.9-5.3/4.2-5.9 cm LVIDd Index: 2.58 2.4-3.2/2.2-3.1 cm/m2 LVIDs: 3.38 2.0-3.6 cm LVPWd: 1.04 0.7-1.1 cm Ao Root: 3.50 2.1-3.5 cm LA Diam: 4.60 2.7-3.8/3.0-4.0 cm LAIDs Index: 2.32 1.5-2.3 cm/m2 LV Mass: 261.65 67-162/88-224 g LV Mass Index: 132.15 43-95/49-115 g/m2 LVOT Diam: 2.40 3.0+(-)1.3 cm 2D Systolic Function EF 4C: 46.90 >55% EF 2C: 26.20 >55% Mitral Valve MV Pk E: 1.16 MV Decel Time: 156.00 E'Lateral: 13.70 E'Medial: 6.42 E/E' Med: 18.10 E/E' Lat: 8.50 PHT: 46.00 MVA PHT: 4.78 Decel [place]: 7.47 Aortic Valve AoV Pk Freedom: 2.13 AoV Mn Freedom: 1.40 AoV VTI: 0.36 AoV Pk Grad: 18.00 Aov Mn Grad: 10.00 ERIKA Cont.VTI: 2.30 LVOT LVOT Pk Freedom: 0.78 LVOT Mn Freedom: 0.52 LVOT VTI: 0.19 LVOT Pk Grad: 2.00 LVOT Mn Grad: 1.00 LVOT Diam: 2.40 LVOT Area: 4.52 Diastolic Function MV Pk E: 1.16 E'Medial: 6.42 E/E' Med: 18.10 E' Laterial: 13.70 E/E' Lat: 8.50 Right Ventricle TAPSE (mm): 22.00 TVS' Freedom: 11.70 Tricuspid Valve TR Pk Freedom: 2.26 TR Pk Grad: 20.00 Great Vessels Aorta Ao Root-2D: 3.50 2.0-3.7 cm Ao Asc: 4.10 2.1-3.4 cm Pulmonary Valve PV Pk Freedom: 0.99 Peak PV Grad: 4.00 Updated in Other Vendor System with Status of Final Srini Kiser MD electronically signed on 01/05/2024 7:07:13 PM with status of Final
--- NOTE | 2024-01-04 08:15 | MHC.EDTECH ---
assited pt with walking to the restroom. upon return, orthostatic vitals were taken
[2024-01-04] MEDS: Apixaban 2.5 MG TABLET PO ×2 (09:23→20:41)
[2024-01-04] MEDS: 0.9 % Sodium Chloride Flush 3 ML SYRINGE IVFLUSH ×2 (09:23→20:41)
[2024-01-04] MEDS: Atorvastatin Calcium 40 MG TABLET PO (09:23)
[2024-01-04] MEDS: allopurinoL 100 MG TABLET PO (09:23)
[2024-01-04] MEDS: Finasteride 5 MG TABLET PO (09:23)
[2024-01-04] MEDS: amLODIPine Besylate 2.5 MG TABLET PO (09:23)
[2024-01-04] MEDS: Multivitamin TABLET 1 TAB PO (09:23)
[2024-01-04] MEDS: Metoprolol Succinate ER 100 MG TAB.ER.24H PO (09:24)
--- NOTE | 2024-01-04 09:48 | MHC.CM.PN ---
Patient has Dementia and is documented to be a vague Historian; CM spoke with Son/HCP/[facility] at listed # and original IMM will be mailed certified mail to Sam and a copy will be placed on the chart. Patient lives in a house with his and [facility] and he required no services nor DME LOW [employer]. Patient may benefit from a PT Eval to assist with disposition. PCP is Dr. Alvaro Pollard and Sam will look for a copy of the HCP after he flies home from [place] this evening.
--- NOTE | 2024-01-04 10:20 | P.CONCA_ITS ---
History of Present Illness History of Present Illness Date of Service: 01/04/24 Requesting physician: Evelyn Flanagan Chief complaint: Syncope, Rapid a-fib Narrative: [age] year gentleman presenting with syncope. He has background history of atrial fibrillation and has been on metoprolol and apixaban. He is somewhat confused currently and history is limited. It appears he passed out sitting down when brought to the emergency department he was in AFib with RVR. He is orthostatics are positive. He said he has been out in the sun a lot and maybe got dehydrated. Heart rates are improving with hydration. His blood pressure is high. Denying chest discomfort. Shortness of breath. [facility] Past Medical History Medical History TIA (transient ischemic attack) Bladder cancer Ischemic cardiomyopathy Thoracic aortic aneurysm Myocardial infarction Back pain Elevated cholesterol Gout HTN (hypertension) Dementia CAD (coronary artery disease) BPH (benign prostatic hyperplasia) Afib Surgical History Surgical History Hx of cholecystectomy Hx of inguinal hernia repair Hx of heart artery stent Social History Social History Household Members: Spouse Patient Tobacco Use Status: Never used Tobacco Smoked in Last 30 Days: No Use of substances other than those prescribed or required for medical reasons: No Advance Directives: Yes Advance Directives Information Provided: No Advance Directives on File: No Nutrition Risks: No Nutritional Risk service: No Meds Allergies Allergy/AdvReac Type Severity Reaction Status Date / Time No Known Allergies Allergy Verified 01/03/24 15:46 Active Medications: Current Medications Acetaminophen (Acetaminophen 325 Mg Tablet) 975 mg PO Q6H PRN PRN Reason: Pain, Mild (Pain Scale 1-3), fever or headache Allopurinol (Allopurinol 100 Mg Tablet) 100 mg PO DAILY [facility] Last Admin: 01/04/24 09:23 Dose: 100 mg Amlodipine Besylate (Amlodipine Besylate 2.5 Mg Tablet) 2.5 mg PO DAILY [facility]; Protocol Last Admin: 01/04/24 09:23 Dose: 2.5 mg Apixaban (Apixaban 2.5 Mg Tablet) 2.5 mg PO BID [facility] Last Admin: 01/04/24 09:23 Dose: 2.5 mg Atorvastatin Calcium (Atorvastatin Calcium 40 Mg Tablet) 40 mg PO DAILY [facility] Last Admin: 01/04/24 09:23 Dose: 40 mg Finasteride (Finasteride 5 Mg Tablet) 5 mg PO DAILY [facility] Last Admin: 01/04/24 09:23 Dose: 5 mg Melatonin (Melatonin 3 Mg Tablet) 6 mg PO BEDTIME PRN PRN Reason: Insomnia Last Admin: 01/03/24 21:28 Dose: 6 mg Metoprolol Succinate (Metoprolol Succinate Er 100 Mg Tab.Er.24h) 100 mg PO DAILY [facility]; Protocol Last Admin: 01/04/24 09:24 Dose: 100 mg Multivitamins/Vitamin C (Multivitamin Tablet) 1 tab PO DAILY [facility] Last Admin: 01/04/24 09:23 Dose: 1 tab Sodium Chloride (0.9 % Sodium Chloride Flush 3 Ml Syringe) 3 ml IVFLUSH QSHIFT [facility] Last Admin: 01/04/24 09:23 Dose: 3 ml Home Medications ?Medication ?Instructions ?Recorded ?Confirmed ?Last Taken ?Type allopurinol 100 mg tablet 100 mg PO DAILY 11/07/23 01/03/24 01/03/24 History apixaban 2.5 mg tablet (Eliquis) 2.5 mg PO BID 11/07/23 01/03/24 01/03/24 History atorvastatin 40 mg tablet 40 mg PO DAILY 11/07/23 01/03/24 01/03/24 History finasteride 5 mg tablet 5 mg PO DAILY 11/07/23 01/03/24 01/03/24 History metoprolol succinate 100 mg 100 mg PO DAILY 11/07/23 01/03/24 01/03/24 History tablet,extended release 24 hr vitamin B complex 1 tab PO DAILY 11/07/23 01/03/24 01/03/24 History amlodipine 2.5 mg tablet 2.5 mg PO DAILY 01/03/24 01/03/24 01/03/24 History Physical Exam 2 Vital Signs: Vital Signs: Last Vital Signs Temp 97.9 F 01/04/24 05:11 Pulse 102 H 01/04/24 09:22 Resp 15 01/04/24 09:22 BP 134/84 01/04/24 09:22 Pulse Ox 98 01/04/24 09:22 O2 Del Method Room Air 01/04/24 09:22 BMI result Body Mass Index 30.3 GENERAL APPEARANCE: in no acute distress, pleasant. NECK: no carotid bruit, no jugular venous distention. SKIN: no suspicious lesions, warm and dry. HEART: no murmurs, irregular rate and rhythm. Tachycardic. LUNGS: clear to auscultation bilaterally. ABDOMEN: soft, nontender. EXTREMITIES: no edema. PERIPHERAL PULSES: equal. NEUROLOGIC: No gross deficits, AAO X 3 Objective Labs and Meds 01/03/24 15:55 01/03/24 15:55 Lab results: Laboratory Results - last 24 hr 01/03/24 01/03/24 01/03/24 15:36 15:55 16:17 WBC 7.1 RBC 4.73 Hgb 16.0 Hct 45.1 MCV 95.3 MCH 33.8 H MCHC 35.5 RDW 13.5 Plt Count 195 MPV 9.5 Immature Gran % (Auto) 0.3 Neut % (Auto) 70.7 Lymph % (Auto) 20.6 [place] % (Auto) 6.6 Eos % (Auto) 1.1 Baso % (Auto) 0.7 Lymph # (Auto) 1.5 [place] # (Auto) 0.5 Eos # (Auto) 0.1 Baso # (Auto) 0.1 Abs Immat Gran (auto) 0.02 Absolute Neuts (auto) 5.0 Absolute Nucleated RBC 0.000 Nucleated RBC % (auto) 0.0 PT 16.9 H INR 1.4 H Sodium 141 Potassium 4.3 Chloride 110 H Carbon Dioxide 22 Anion Gap 13 BUN 19 H Creatinine 1.68 H Estim Creat Clear Calc 32.3 Estimated GFR 39 POC Glucose 117 H Random Glucose 123 H Lactic Acid 2.1 H* Lactic Acid F/U @ 2Hr Calcium 9.3 Total Bilirubin 2.0 H Direct Bilirubin 0.2 AST 27 ALT 23 Alkaline Phosphatase 74 Ammonia 29 Troponin I High Sens 8.1 Total Protein 7.2 Albumin 4.3 Lipase 21 TSH 1.47 Urine Color Urine Appearance Urine pH Ur Specific [place] Urine Protein Urine Glucose (UA) Urine Ketones Urine Blood Urine Nitrite Ur Leukocyte Esterase Urine RBC Urine WBC Ur Squamous Epith Cells Urine Bacteria Hyaline Casts 01/03/24 01/03/24 18:28 18:30 WBC RBC Hgb Hct MCV MCH MCHC RDW Plt Count MPV Immature Gran % (Auto) Neut % (Auto) Lymph % (Auto) [place] % (Auto) Eos % (Auto) Baso % (Auto) Lymph # (Auto) [place] # (Auto) Eos # (Auto) Baso # (Auto) Abs Immat Gran (auto) Absolute Neuts (auto) Absolute Nucleated RBC Nucleated RBC % (auto) PT INR Sodium Potassium Chloride Carbon Dioxide Anion Gap BUN Creatinine Estim Creat Clear Calc Estimated GFR POC Glucose Random Glucose Lactic Acid Lactic Acid F/U @ 2Hr 1.6 Calcium Total Bilirubin Direct Bilirubin AST ALT Alkaline Phosphatase Ammonia Troponin I High Sens Total Protein Albumin Lipase TSH Urine Color Yellow Urine Appearance Clear Urine pH 5.5 Ur Specific [place] 1.015 Urine Protein Negative Urine Glucose (UA) Negative Urine Ketones Negative Urine Blood Negative Urine Nitrite Negative Ur Leukocyte Esterase Negative Urine RBC 0-2 Urine WBC 0-5 Ur Squamous Epith Cells 0-2 Urine Bacteria None Seen Hyaline Casts 3-5 Imaging Radiologist's impression: Impressions Chest X-Ray 01/03/24 16:43 IMPRESSION: No acute pulmonary disease. Head CT 01/03/24 17:45 IMPRESSION: No acute intracranial pathology. Mild microvascular ischemic change. Assessment and Plan (1) Atrial fibrillation with rapid ventricular response: Status: Acute (2) Syncope: Qualifiers: Syncope type: unspecified Qualified Code(s): R55 - Syncope and collapse Status: Acute Plan [age] year gentleman presenting for syncope. History is quite limited because he has some memory issues and is currently confused. He is orthostatic positive at this point and is getting IV hydration. Not in heart failure. No chest pain or shortness of breath. Continue with metoprolol and Eliquis. Hydration and reassessment of orthostatic vital signs. Can get echocardiogram to assess for any structural heart issues. Thank you for allowing me to participate in the care of your patient. Please feel free to contact me if you have any questions. Procedures Date of Service Date of Service: 01/04/24
--- NOTE | 2024-01-04 11:14 | HO.PM.IMPN ---
Subjective Subjective Date of Service: 01/04/24 Interval History: Noted to be orthostatic positive in a.m.. Dizziness and lightheadedness present upon standing. Palpitations + Constitutional Constitutional: Reports lethargy, Reports malaise and Reports weakness ENT Ears, Nose, Mouth, and Throat: Reports dizziness Cardiovascular Cardiovascular: Reports no additional cardiovascular complaints and Reports syncope Respiratory Respiratory: Reports no additional respiratory complaints Gastrointestinal Gastrointestinal: Reports no additional gastrointestinal complaints Neurologic Neurologic: Reports dizziness, Reports syncope and Reports weakness Physical Exam Vital Signs: Vital Signs: Last Vital Signs Temp 97.9 F 01/04/24 05:11 Pulse 102 H 01/04/24 09:22 Resp 15 01/04/24 09:22 BP 134/84 01/04/24 09:22 Pulse Ox 98 01/04/24 09:22 O2 Del Method Room Air 01/04/24 09:22 BMI result Body Mass Index 30.3 Elderly male lying in bed in no distress Neck supple, no JVD Irregularly irregular, S1-S2 heard Regular breath sounds bilaterally, no wheezing or crackles appreciated Abdomen soft nontender, no guarding, no rigidity Patient is awake, alert and oriented to self, place, time ; no focal motor deficit Psych: Anxious No pedal edema Objective Data Active Medications Acetaminophen (Acetaminophen 325 Mg Tablet) 975 mg PO Q6H PRN PRN Reason: Pain, Mild (Pain Scale 1-3), fever or headache Allopurinol (Allopurinol 100 Mg Tablet) 100 mg PO DAILY [facility] Last Admin: 01/04/24 09:23 Dose: 100 mg Documented By: BELTRAN Amlodipine Besylate (Amlodipine Besylate 2.5 Mg Tablet) 2.5 mg PO DAILY [facility]; Protocol Last Admin: 01/04/24 09:23 Dose: 2.5 mg Documented By: BELTRAN Apixaban (Apixaban 2.5 Mg Tablet) 2.5 mg PO BID [facility] Last Admin: 01/04/24 09:23 Dose: 2.5 mg Documented By: BELTRAN Atorvastatin Calcium (Atorvastatin Calcium 40 Mg Tablet) 40 mg PO DAILY [facility] Last Admin: 01/04/24 09:23 Dose: 40 mg Documented By: BELTRAN Finasteride (Finasteride 5 Mg Tablet) 5 mg PO DAILY [facility] Last Admin: 01/04/24 09:23 Dose: 5 mg Documented By: BELTRAN Melatonin (Melatonin 3 Mg Tablet) 6 mg PO BEDTIME PRN PRN Reason: Insomnia Last Admin: 01/03/24 21:28 Dose: 6 mg Documented By: NAVIN Metoprolol Succinate (Metoprolol Succinate Er 100 Mg Tab.Er.24h) 100 mg PO DAILY [facility]; Protocol Last Admin: 01/04/24 09:24 Dose: 100 mg Documented By: BELTRAN Multivitamins/Vitamin C (Multivitamin Tablet) 1 tab PO DAILY [facility] Last Admin: 01/04/24 09:23 Dose: 1 tab Documented By: BELTRAN Sodium Chloride (0.9 % Sodium Chloride Flush 3 Ml Syringe) 3 ml IVFLUSH QSHIFT [facility] Last Admin: 01/04/24 09:23 Dose: 3 ml Documented By: BELTRAN Labs 01/03/24 15:55 01/03/24 15:55 Labs: Laboratory Results - last 24 hr 01/03/24 01/03/24 01/03/24 15:36 15:55 16:17 MCV 95.3 MCH 33.8 H MCHC 35.5 RDW 13.5 Plt Count 195 MPV 9.5 Immature Gran % (Auto) 0.3 Neut % (Auto) 70.7 Lymph % (Auto) 20.6 [place] % (Auto) 6.6 Eos % (Auto) 1.1 Baso % (Auto) 0.7 Lymph # (Auto) 1.5 [place] # (Auto) 0.5 Eos # (Auto) 0.1 Baso # (Auto) 0.1 Abs Immat Gran (auto) 0.02 Absolute Neuts (auto) 5.0 Absolute Nucleated RBC 0.000 Nucleated RBC % (auto) 0.0 PT 16.9 H INR 1.4 H Anion Gap 13 Estim Creat Clear Calc 32.3 Estimated GFR 39 POC Glucose 117 H Random Glucose 123 H Lactic Acid 2.1 H* Lactic Acid F/U @ 2Hr Calcium 9.3 Total Bilirubin 2.0 H Direct Bilirubin 0.2 AST 27 ALT 23 Alkaline Phosphatase 74 Ammonia 29 Troponin I High Sens 8.1 Total Protein 7.2 Albumin 4.3 Lipase 21 TSH 1.47 Urine Color Urine Appearance Urine pH Ur Specific [place] Urine Protein Urine Glucose (UA) Urine Ketones Urine Blood Urine Nitrite Ur Leukocyte Esterase Urine RBC Urine WBC Ur Squamous Epith Cells Urine Bacteria Hyaline Casts 01/03/24 01/03/24 18:28 18:30 MCV MCH MCHC RDW Plt Count MPV Immature Gran % (Auto) Neut % (Auto) Lymph % (Auto) [place] % (Auto) Eos % (Auto) Baso % (Auto) Lymph # (Auto) [place] # (Auto) Eos # (Auto) Baso # (Auto) Abs Immat Gran (auto) Absolute Neuts (auto) Absolute Nucleated RBC Nucleated RBC % (auto) PT INR Anion Gap Estim Creat Clear Calc Estimated GFR POC Glucose Random Glucose Lactic Acid Lactic Acid F/U @ 2Hr 1.6 Calcium Total Bilirubin Direct Bilirubin AST ALT Alkaline Phosphatase Ammonia Troponin I High Sens Total Protein Albumin Lipase TSH Urine Color Yellow Urine Appearance Clear Urine pH 5.5 Ur Specific [place] 1.015 Urine Protein Negative Urine Glucose (UA) Negative Urine Ketones Negative Urine Blood Negative Urine Nitrite Negative Ur Leukocyte Esterase Negative Urine RBC 0-2 Urine WBC 0-5 Ur Squamous Epith Cells 0-2 Urine Bacteria None Seen Hyaline Casts 3-5 Assessment and Plan (1) Atrial fibrillation with rapid ventricular response: Status: Acute (2) Syncope: Status: Acute Plan This is a 83-year-old male with pertinent history of CAD, paroxysmal atrial fibrillation on Eliquis who presents to the emergency department for evaluation of syncope. #. Syncope due to orthostasis: Discussed with cardiology > less likely cardiac etiology. Orthostatics positive this a.m.. Will resuscitate with IV crystalloids and repeat orthostatics. Echo pending #. AFib with RVR: Will give IV Lopressor. Continue p.o. beta-rodrick and Eliquis #. Elevated creatinine: Unknown baseline. SHANNON versus CKD. Monitor with crystalloid resuscitation. #. Hypertension: Continue metoprolol and amlodipine #. Mixed hyperlipidemia: On statin #. BPH: On finasteride #. Gout: On allopurinol #. Dementia, unspecified: Maintain sleep-wake cycle DVT prophylaxis: Eliquis Full code Reason for continued hospitalization: IV fluid resuscitation as continues to be orthostatics positive. Also needs rate control in a patient with AFib with RVR. Quality Stroke Does the patient have a stroke diagnosis?: No VTE Prior VTE?: No VTE Risk Level:: Medical - moderate - high VTE Device Contraindication: Treatment Not Indicated VTE Drug Contraindication: N/A - Med Ordered
[2024-01-04 11:23] LABS: MANUAL DIFF FLAG NO
[2024-01-04 11:29] LABS: Basophils Percent Auto 0.4 % (0-2); Eosinophils Percent Auto 0.1 % (0-4); Hematocrit 46.1 % (42.0-52.0); Hemoglobin 16.4 g/dl (14.0-18.0); Imm Gran Abs Auto 0.03 X10*3/uL (0.00-0.03); Imm Gran Pct Auto 0.3 % (0.0-0.4); Lymphocytes Absolute Auto 0.9 X10*3/uL (1.2-4.9); Lymphocytes Percent Auto 8.3 % (20-40); Mean Corpuscular HGB Conc 35.6 g/dl (31.0-36.0); Mean Corpuscular Hemoglobin 33.6 pg (27.0-33.0); Mean Corpuscular Volume 94.5 fL (80.0-98.0); Mean Platelet Volume 9.3 fL (9.4-12.4); Monocytes Absolute Auto 0.5 X10*3/uL (0.1-1.2); Neutrophils Absolute Auto 8.8 x10*3/uL (2.0-8.3); Neutrophils Percent Auto 85.9 % (45-73); Platelet Count 194 X10*3/uL (160-400); Red Blood Count 4.88 X10*6/uL (4.60-5.80); Red Cell Distribution Width 13.4 % (11.0-16.0); White Blood Count 10.2 X10*3/uL (4.8-10.8)
[2024-01-04 11:48] LABS: Anion Gap 14 (12-20); Blood Urea Nitrogen 15 mg/dL (9-16); Calcium 9.2 mg/dL (8.4-10.2); Carbon Dioxide 22 mmol/L (22-29); Chloride 109 mmol/L (96-108); Creatinine Clr Calc Pharmacy 44.5; Estimated Glomerular Filt Rate 57; Glucose Random 118 mg/dL (60-115); Potassium 4.1 mmol/L (3.3-5.1); Sodium 141 mmol/L (135-145)
[2024-01-04 11:56] LABS: Troponin-I High Sensitivity 5.6 ng/L (<3.5-35.0)
[2024-01-04] MEDS: Metoprolol Tartrate 5 MG/5 ML VIAL IVPUSH (12:20)
[2024-01-04] MEDS: 0.9 % Sodium Chloride 500 ML IV (12:21)
[2024-01-04 18:14] LABS: Lyme Abs Screen <0.90 index
[2024-01-05] VITALS (14 sets, daily range): BP systolic 80–166; BP diastolic 49–98; PULSE 61–115; RESP 18–20; TEMP 35.9–37.1; O2SAT 94–98
--- NOTE | 2024-01-05 03:47 | PC.NURSE ---
Pt is AOx3 but is forgetful, confused, can have nonsensical speech. Pt has 1:1 sitter and camera in the room. He has been ambulating to the bathroom w/the sitter, no c/o dizzy or being lightheaded at this time. Pt's son called and stated all of his father's care happens at [facility] and asked if he could be transferred there. He also would like his father to have a neuro/geriatric/dementia consult if [facility] has anyone who specializes in all of those areas. This RN informed the son to pass on these requests in the morning. Son also stated his father can have an increase in what he referred to as paranoia/suellen when given benadryl, prednisone, and any steroids, son reports it runs in the family. This RN did not administer any of those meds on this shift; did not see any ordered. Call frederick within reach. 1:1 sitter bedside and camera in the room at this time.
[2024-01-05] MEDS: amLODIPine Besylate 2.5 MG TABLET PO (07:47)
[2024-01-05] MEDS: Multivitamin TABLET 1 TAB PO (07:47)
[2024-01-05] MEDS: Atorvastatin Calcium 40 MG TABLET PO (07:47)
[2024-01-05] MEDS: Apixaban 2.5 MG TABLET PO ×2 (07:48→21:34)
[2024-01-05] MEDS: Finasteride 5 MG TABLET PO (07:48)
[2024-01-05] MEDS: Metoprolol Succinate ER 100 MG TAB.ER.24H PO (07:48)
[2024-01-05] MEDS: allopurinoL 100 MG TABLET PO (07:48)
[2024-01-05] MEDS: 0.9 % Sodium Chloride Flush 3 ML SYRINGE IVFLUSH ×3 (07:49→21:36)
[2024-01-05 08:02] LABS: MANUAL DIFF FLAG NO
[2024-01-05 08:09] LABS: Basophils Percent Auto 0.3 % (0-2); Eosinophils Absolute Auto 0.1 X10*3/uL (0.0-0.4); Eosinophils Percent Auto 0.9 % (0-4); Hematocrit 43.9 % (42.0-52.0); Hemoglobin 15.5 g/dl (14.0-18.0); Imm Gran Abs Auto 0.03 X10*3/uL (0.00-0.03); Imm Gran Pct Auto 0.3 % (0.0-0.4); Lymphocytes Absolute Auto 1.8 X10*3/uL (1.2-4.9); Lymphocytes Percent Auto 20.6 % (20-40); Mean Corpuscular HGB Conc 35.3 g/dl (31.0-36.0); Mean Corpuscular Hemoglobin 33.5 pg (27.0-33.0); Mean Corpuscular Volume 94.8 fL (80.0-98.0); Mean Platelet Volume 9.9 fL (9.4-12.4); Monocytes Absolute Auto 0.5 X10*3/uL (0.1-1.2); Monocytes Percent Auto 6.2 % (2-11); Neutrophils Absolute Auto 6.3 x10*3/uL (2.0-8.3); Neutrophils Percent Auto 71.7 % (45-73); Platelet Count 178 X10*3/uL (160-400); Red Blood Count 4.63 X10*6/uL (4.60-5.80); Red Cell Distribution Width 13.4 % (11.0-16.0); White Blood Count 8.8 X10*3/uL (4.8-10.8)
[2024-01-05 08:40] LABS: Anion Gap 15 (12-20); Blood Urea Nitrogen 18 mg/dL (9-16); Calcium 9.2 mg/dL (8.4-10.2); Carbon Dioxide 21 mmol/L (22-29); Chloride 108 mmol/L (96-108); Creatinine Clr Calc Pharmacy 45.3; Estimated Glomerular Filt Rate 58; Glucose Random 96 mg/dL (60-115); Potassium 4.1 mmol/L (3.3-5.1); Sodium 140 mmol/L (135-145)
--- NOTE | 2024-01-05 13:14 | P.PNCA_ITS ---
Subjective Subjective Date of Service: 01/05/24 Interval history: Seen examined at bedside. He was orthostatic yesterday and has been given IV fluids. He has been encouraged to drink water. Also met his son Sam at bedside who flew back from [place]. Updated about the clinical presentation that Clint passed out due to dehydration. He was concerned that Clint is quite confused today. He was asking whether a transfer to [facility] to involve Neurology and Martha psych is a possibility. I explained to him that being a new environment sometime lead to confusion and sometimes patients given medications to keep him calm which also make them more confused at times. He was upset and asking whether any medications were given to Clint. I told him that I have seen Zyprexa on his list but I am not sure whether this is actively given to him or its and PRN order. He became more argumentative and was asking whether I can check and tell him who gave the medication and why was it given to him. I explained to him that I am not sure about the exact circumstances the medication was given to the patient. The patient asked whether he can go home and I said he can return home if he is feeling fine. Wisner added that he just told you that he is dizzy and you are just trying to open up the bed. I asked the patient and he said he has not dizzy and I explained to Sam that with dementia sometime clinical history changes from time to time. We will be objective with checking orthostatics before he goes home. Physical Exam Vital Signs: Last Vital Signs Temp 98.4 F 01/05/24 11:26 Pulse 72 01/05/24 11:26 Resp 18 01/05/24 11:26 BP 157/80 H 01/05/24 11:26 Pulse Ox 96 01/05/24 11:26 O2 Del Method Room Air 01/05/24 11:26 BMI result Body Mass Index 30.3 GENERAL APPEARANCE: in no acute distress, pleasant. NECK: no carotid bruit, no jugular venous distention. SKIN: no suspicious lesions, warm and dry. HEART: no murmurs, irregular rate and rhythm. LUNGS: clear to auscultation bilaterally. ABDOMEN: soft, nontender. EXTREMITIES: no edema. PERIPHERAL PULSES: equal. NEUROLOGIC: No gross deficits, awake and answering questions. Objective Labs and Meds 01/05/24 07:29 01/05/24 07:29 Lab results: Laboratory Results - last 24 hr 01/03/24 01/05/24 15:55 07:29 WBC 8.8 RBC 4.63 Hgb 15.5 Hct 43.9 MCV 94.8 MCH 33.5 H MCHC 35.3 RDW 13.4 Plt Count 178 MPV 9.9 Immature Gran % (Auto) 0.3 Neut % (Auto) 71.7 Lymph % (Auto) 20.6 [place] % (Auto) 6.2 Eos % (Auto) 0.9 Baso % (Auto) 0.3 Lymph # (Auto) 1.8 [place] # (Auto) 0.5 Eos # (Auto) 0.1 Baso # (Auto) 0.0 Abs Immat Gran (auto) 0.03 Absolute Neuts (auto) 6.3 Absolute Nucleated RBC 0.000 Nucleated RBC % (auto) 0.0 Sodium 140 Potassium 4.1 Chloride 108 Carbon Dioxide 21 L Anion Gap 15 BUN 18 H Creatinine 1.20 Estim Creat Clear Calc 45.3 Estimated GFR 58 Random Glucose 96 Calcium 9.2 Lyme Screen IgG & IgM <0.90 Lyme Progressive Test TNP Progress Note: A&P Assessment and plan (1) Atrial fibrillation with rapid ventricular response: Status: Acute (2) Syncope: Status: Acute Plan Pleasant 83-year-old gentleman with background of atrial fibrillation on anticoagulation and metoprolol who presented with syncope. As per discussion with the son, he was out in the sun and came in dizzy and then passed out. Was felt that presentation is due to dehydration and he was also positive on orthostatic vital signs. He has been hydrated and overall clinically is improving. We should check orthostatic vital signs again. Heart rate is well controlled with metoprolol succinate. If orthostatics are stable and he can be encouraged to take oral medications then potentially we should start discussing discharge. The son has questions whether transferred to [facility] to involve Neurology and Martha psych is a possibility I have relayed this to the Medicine team and they will discuss this if this is a possibility for the patient. Thank you for allowing me to participate in the care of your patient. Please feel free to contact me if you have any questions. Time Spent With Patient Time: Total time managing care of this patient today ____ minutes. Progress Note: Quality Stroke Does the patient have a stroke diagnosis?: No Procedures Date of Service Date of Service: 01/05/24
--- NOTE | 2024-01-05 15:34 | P.PNIM_ITS ---
Subjective Subjective Date of Service: 01/05/24 Interval History: Still with intermittent complaints of postural dizziness. Mild visual hallucinations are improving Review of Systems Denies chest pain Denies shortness of breath Denies nausea vomiting diarrhea Denies fever chills Physical Exam 2 Vital Signs: Vital Signs: Last Vital Signs Temp 96.6 F L 01/05/24 15:16 Pulse 72 01/05/24 15:16 Resp 20 01/05/24 15:16 BP 133/84 01/05/24 15:16 Pulse Ox 98 01/05/24 15:16 O2 Del Method Room Air 01/05/24 15:16 BMI result Body Mass Index 30.3 Const: Other: Awake oriented to person. No acute distress Resp: Other: Clear to auscultation bilaterally no rales rhonchi or wheezes Cardio: Other: No S4; positive S1-S2; no S3 murmurs rubs or gallops GI: Other: Soft nontender nondistended normoactive bowel sounds Neuro: Other: Cranial nerves 2-12 grossly intact as tested. Motor 5/5 all extremities sensation is intact Extrem: Other: No edema bilaterally Objective Data Active Medications Acetaminophen (Acetaminophen 325 Mg Tablet) 975 mg PO Q6H PRN PRN Reason: Pain, Mild (Pain Scale 1-3), fever or headache Allopurinol (Allopurinol 100 Mg Tablet) 100 mg PO DAILY [facility] Last Admin: 01/05/24 07:48 Dose: 100 mg Documented By: DARRELL Amlodipine Besylate (Amlodipine Besylate 2.5 Mg Tablet) 2.5 mg PO DAILY [facility]; Protocol Last Admin: 01/05/24 07:47 Dose: 2.5 mg Documented By: DARRELL Apixaban (Apixaban 2.5 Mg Tablet) 2.5 mg PO BID [facility] Last Admin: 01/05/24 07:48 Dose: 2.5 mg Documented By: DARRELL Atorvastatin Calcium (Atorvastatin Calcium 40 Mg Tablet) 40 mg PO DAILY [facility] Last Admin: 01/05/24 07:47 Dose: 40 mg Documented By: DARRELL Finasteride (Finasteride 5 Mg Tablet) 5 mg PO DAILY [facility] Last Admin: 01/05/24 07:48 Dose: 5 mg Documented By: DARRELL Melatonin (Melatonin 3 Mg Tablet) 6 mg PO BEDTIME PRN PRN Reason: Insomnia Last Admin: 01/03/24 21:28 Dose: 6 mg Documented By: NAVIN Metoprolol Succinate (Metoprolol Succinate Er 100 Mg Tab.Er.24h) 100 mg PO DAILY [facility]; Protocol Last Admin: 01/05/24 07:48 Dose: 100 mg Documented By: DARRELL Multivitamins/Vitamin C (Multivitamin Tablet) 1 tab PO DAILY [facility] Last Admin: 01/05/24 07:47 Dose: 1 tab Documented By: DARRELL Sodium Chloride (0.9 % Sodium Chloride Flush 3 Ml Syringe) 3 ml IVFLUSH QSHIFT [facility] Last Admin: 01/05/24 07:49 Dose: 3 ml Documented By: DARRELL Labs 01/05/24 07:29 01/05/24 07:29 Labs: Laboratory Results - last 24 hr 01/03/24 01/05/24 15:55 07:29 MCV 94.8 MCH 33.5 H MCHC 35.3 RDW 13.4 Plt Count 178 MPV 9.9 Immature Gran % (Auto) 0.3 Neut % (Auto) 71.7 Lymph % (Auto) 20.6 [place] % (Auto) 6.2 Eos % (Auto) 0.9 Baso % (Auto) 0.3 Lymph # (Auto) 1.8 [place] # (Auto) 0.5 Eos # (Auto) 0.1 Baso # (Auto) 0.0 Abs Immat Gran (auto) 0.03 Absolute Neuts (auto) 6.3 Absolute Nucleated RBC 0.000 Nucleated RBC % (auto) 0.0 Anion Gap 15 Estim Creat Clear Calc 45.3 Estimated GFR 58 Random Glucose 96 Calcium 9.2 Lyme Screen IgG & IgM <0.90 Lyme Progressive Test TNP Microbiology Microbiology Results: Microbiology 01/03/24 16:17 Blood Culture - Preliminary Blood - Venous No growth after 24 hours. 01/03/24 15:55 Blood Culture - Preliminary Blood - Venous No growth after 24 hours. Assessment and Plan (1) Syncope: Status: Acute (2) Atrial fibrillation with rapid ventricular response: Status: Acute Plan This is a 83-year-old male with pertinent history of CAD, paroxysmal atrial fibrillation on Eliquis who presents to the emergency department for evaluation of syncope. 1.Syncope likely due to volume depletion -volume repleted with some improvement in symptoms -will DC amlodipine -change metoprolol ER 100 to metoprolol 50 b.i.d. 2. AFib (initially RVR) -rate control improved with volume -medications as above -continue Eliquis 3.Hypertension -mild hypotension -med adjustments as above 4.Dementia with visual hallucinations -likely compounded by volume depletion and AFib -slowly improving -follow clinically Eliquis Full code Requires ongoing hospitalization to document response to medication changes which likely contributed to syncope. High risk for outpatient failure at this point Quality Stroke Does the patient have a stroke diagnosis?: No VTE Prior VTE?: No VTE Risk Level:: Medical - moderate - high VTE Device Contraindication: Treatment Not Indicated VTE Drug Contraindication: N/A - Med Ordered
[2024-01-06] VITALS (7 sets, daily range): BP systolic 101–160; BP diastolic 53–95; PULSE 50–97; RESP 18–20; TEMP 36.1–36.8; O2SAT 96–97
[2024-01-06 07:39] LABS: MANUAL DIFF FLAG NO
[2024-01-06 07:44] LABS: Basophils Absolute Auto 0.1 X10*3/uL (0.0-0.2); Basophils Percent Auto 0.5 % (0-2); Eosinophils Absolute Auto 0.2 X10*3/uL (0.0-0.4); Eosinophils Percent Auto 1.6 % (0-4); Hematocrit 43.7 % (42.0-52.0); Hemoglobin 15.5 g/dl (14.0-18.0); Imm Gran Abs Auto 0.06 X10*3/uL (0.00-0.03); Imm Gran Pct Auto 0.6 % (0.0-0.4); Lymphocytes Absolute Auto 1.7 X10*3/uL (1.2-4.9); Lymphocytes Percent Auto 16.8 % (20-40); Mean Corpuscular HGB Conc 35.5 g/dl (31.0-36.0); Mean Corpuscular Hemoglobin 33.8 pg (27.0-33.0); Mean Corpuscular Volume 95.2 fL (80.0-98.0); Mean Platelet Volume 9.7 fL (9.4-12.4); Monocytes Absolute Auto 0.6 X10*3/uL (0.1-1.2); Monocytes Percent Auto 6.2 % (2-11); Neutrophils Absolute Auto 7.6 x10*3/uL (2.0-8.3); Neutrophils Percent Auto 74.3 % (45-73); Platelet Count 187 X10*3/uL (160-400); Red Blood Count 4.59 X10*6/uL (4.60-5.80); Red Cell Distribution Width 13.5 % (11.0-16.0); White Blood Count 10.2 X10*3/uL (4.8-10.8)
[2024-01-06] MEDS: Atorvastatin Calcium 40 MG TABLET PO (08:02)
[2024-01-06] MEDS: allopurinoL 100 MG TABLET PO (08:02)
[2024-01-06] MEDS: Metoprolol Tartrate 50 MG TABLET PO (08:02)
[2024-01-06] MEDS: Apixaban 2.5 MG TABLET PO (08:02)
[2024-01-06] MEDS: Multivitamin TABLET 1 TAB PO (08:02)
[2024-01-06] MEDS: Finasteride 5 MG TABLET PO (08:02)
[2024-01-06] MEDS: 0.9 % Sodium Chloride Flush 3 ML SYRINGE IVFLUSH (08:03)
[2024-01-06 08:25] LABS: Alanine Aminotransferase 14 U/L (0-40); Alkaline Phosphatase 73 U/L (39-117); Anion Gap 15 (12-20); Aspartate Amino Transferase 14 U/L (5-37); Bilirubin Total 1.7 mg/dL (0.0-1.0); Blood Urea Nitrogen 20 mg/dL (9-16); Carbon Dioxide 20 mmol/L (22-29); Chloride 108 mmol/L (96-108); Creatinine Clr Calc Pharmacy 47.7; Estimated Glomerular Filt Rate > 60; Glucose Fasting 98 mg/dL (60-99); Potassium 3.4 mmol/L (3.3-5.1); Sodium 140 mmol/L (135-145); Total Protein 6.7 g/dL (6.5-8.0)
--- NOTE | 2024-01-06 11:33 | P.PNCA_ITS ---
Subjective Subjective Date of Service: 01/06/24 Interval history: Seen and examined at bedside. Denying dizziness. Saying he walked and did fine. Physical Exam Vital Signs: Last Vital Signs Temp 96.9 F 01/06/24 07:30 Pulse 97 01/06/24 07:59 Resp 18 01/06/24 07:30 BP 101/58 L 01/06/24 07:59 Pulse Ox 97 01/06/24 07:30 O2 Del Method Room Air 01/06/24 07:30 BMI result Body Mass Index 30.3 GENERAL APPEARANCE: in no acute distress, pleasant. NECK: no carotid bruit, no jugular venous distention. SKIN: no suspicious lesions, warm and dry. HEART: no murmurs, irregular rate and rhythm. LUNGS: clear to auscultation bilaterally. ABDOMEN: soft, nontender. EXTREMITIES: no edema. PERIPHERAL PULSES: equal. NEUROLOGIC: No gross deficits, awake and answering questions. Objective Labs and Meds 01/06/24 07:17 01/06/24 07:17 Lab results: Laboratory Results - last 24 hr 01/03/24 01/06/24 15:55 07:17 WBC 10.2 RBC 4.59 L Hgb 15.5 Hct 43.7 MCV 95.2 MCH 33.8 H MCHC 35.5 RDW 13.5 Plt Count 187 MPV 9.7 Immature Gran % (Auto) 0.6 H Neut % (Auto) 74.3 H Lymph % (Auto) 16.8 L [place] % (Auto) 6.2 Eos % (Auto) 1.6 Baso % (Auto) 0.5 Lymph # (Auto) 1.7 [place] # (Auto) 0.6 Eos # (Auto) 0.2 Baso # (Auto) 0.1 Abs Immat Gran (auto) 0.06 H Absolute Neuts (auto) 7.6 Absolute Nucleated RBC 0.000 Nucleated RBC % (auto) 0.0 Sodium 140 Potassium 3.4 Chloride 108 Carbon Dioxide 20 L Anion Gap 15 BUN 20 H Creatinine 1.14 Estim Creat Clear Calc 47.7 Estimated GFR > 60 Fasting Glucose 98 Calcium 9.0 Total Bilirubin 1.7 H AST 14 ALT 14 Alkaline Phosphatase 73 Total Protein 6.7 Albumin 4.0 Lyme Progressive Test TNP Progress Note: A&P Assessment and plan (1) Atrial fibrillation with rapid ventricular response: Status: Acute (2) Syncope: Status: Acute Plan Pleasant 83-year-old gentleman with background of atrial fibrillation on anticoagulation and metoprolol who presented with syncope. As per discussion with the son, he was out in the sun and came in dizzy and then passed out. Was felt that presentation is due to dehydration and he was also positive on orthostatic vital signs. He has been hydrated and overall clinically is improving. Orthostatics negative today but BP overall low. He has walked and is not dizzy. Advised hydration. Echo has shown borderline LV function 45-50%. He is known to Dr. Davis and will follow up with him. Thank you for allowing me to participate in the care of your patient. Please feel free to contact me if you have any questions. Time Spent With Patient Time: Total time managing care of this patient today ____ minutes. Progress Note: Quality Stroke Does the patient have a stroke diagnosis?: No Procedures Date of Service Date of Service: 01/06/24
--- NOTE | 2024-01-06 12:02 | P.DS_ITS ---
DS: Providers Provider Date of Service: 01/06/24 Date of admission: 01/03/24 20:33 Date of discharge: 01/06/24 Primary care physician: Alvaro Pollard DO Consults: 01/03/24 21:15 Consult to Cardiology Routine Consulting Provider: [facility] [place] [facility] Reason for consultation: Syncope Has provider been notified: Yes DS: Diagnosis Discharge Diagnosis (1) Atrial fibrillation with rapid ventricular response: Status: Acute (2) Syncope: Status: Acute DS: Summary Hospital Course Hospital Course: 83 years old man with past medical history significant for CAD, cardiomyopathy, atrial fibrillation on chronic anticoagulation with Eliquis essential hypertension was brought to the emergency department via EMS after he fainted t [place]. He was found by his who called EMS. The patient is a vague historian. I spoke with his son, Sam, over the phone who provided most of the patient past medical history and HPI. Son stated that when he is that returned to the house and seated on his lifting shortness he lost consciousness. The patient does not remember what happened and denied any symptoms such as headache, palpitations, chest pain, cough, nausea, vomiting, diarrhea, abdominal pain dizziness or shortness on breath. In the ED, he was found to have rapid atrial fibrillation. Last blood pressure is 151/93. Blood workup showed normal white count, hemoglobin platelets. There are no significant electrolyte imbalances. Creatinine is 1.68 (will investigate his baseline). His initial lactic acid was 2.1 is normalized. Ammonia, troponin, albumin, TSH and LFTs are normal. Urinalysis showed no evidence of urinary tract infection. ECG showed atrial fibrillation. CXR is negative. Head CT scan showed no acute intracranial abnormalities. Hospital Course Admitted to child monitor failed to show any rapid ventricular response related to his AFib. Seen in consultation by arcgis developer who recommended no changes in therapy. In review of blood pressures his medications were adjusted; amlodipine was DC and metoprolol succinate was changed to metoprolol tartrate. Orthostatics were repeated after 24 hours with improvement. Symptoms have resolved with med adjustment. This was discussed at son at length and all are in agreement that he is medically stable for return to home with services and follow up with PCP as outpatient Time Attestation Discharge Coordination Time (in mins): 35 Quality: Safe Use of Opioids Does Pt have an Active Cancer Diagnosis on the Problem List?: No Quality: Stroke Does the patient have a stroke diagnosis?: No Physical Exam Vital Signs: Vital Signs: Last Vital Signs Temp 98.2 F 01/06/24 11:46 Pulse 62 01/06/24 11:46 Resp 20 01/06/24 11:46 BP 143/65 H 01/06/24 11:46 Pulse Ox 96 01/06/24 11:46 O2 Del Method Room Air 01/06/24 11:46 BMI result Body Mass Index 30.3 Const: Other: Awake oriented to person. No acute distress Resp: Other: Clear to auscultation bilaterally no rales rhonchi or wheezes Cardio: Other: No S4; positive S1-S2; no S3 murmurs rubs or gallops GI: Other: Soft nontender nondistended normoactive bowel sounds Neuro: Other: Cranial nerves 2-12 grossly intact as tested. Motor 5/5 all extremities sensation is intact Extrem: Other: No edema bilaterally DS: Data Data Completed and Pending Labs on day of discharge: Laboratory Results - last 24 hr 01/06/24 07:17 WBC 10.2 RBC 4.59 L Hgb 15.5 Hct 43.7 MCV 95.2 MCH 33.8 H MCHC 35.5 RDW 13.5 Plt Count 187 MPV 9.7 Immature Gran % (Auto) 0.6 H Neut % (Auto) 74.3 H Lymph % (Auto) 16.8 L [place] % (Auto) 6.2 Eos % (Auto) 1.6 Baso % (Auto) 0.5 Lymph # (Auto) 1.7 [place] # (Auto) 0.6 Eos # (Auto) 0.2 Baso # (Auto) 0.1 Abs Immat Gran (auto) 0.06 H Absolute Neuts (auto) 7.6 Absolute Nucleated RBC 0.000 Nucleated RBC % (auto) 0.0 Sodium 140 Potassium 3.4 Chloride 108 Carbon Dioxide 20 L Anion Gap 15 BUN 20 H Creatinine 1.14 Estim Creat Clear Calc 47.7 Estimated GFR > 60 Fasting Glucose 98 Calcium 9.0 Total Bilirubin 1.7 H AST 14 ALT 14 Alkaline Phosphatase 73 Total Protein 6.7 Albumin 4.0 Preliminary micro results at discharge 01/03/24 16:17 Blood Culture - Preliminary Blood - Venous No growth after 48 hours. 01/03/24 15:55 Blood Culture - Preliminary Blood - Venous No growth after 48 hours. Discharge Plan Discharge Anticipated Discharge Date/Time: 01/06/24 11:57 Patient Disposition: Home Health Service Discharge Diagnosis: Syncope Referrals: Alvaro Pollard DO [Primary Care Provider] - 1 Week Discharge Medications: New metoprolol tartrate 50 mg Tablet 50 mg PO BID Qty: 60 1RF Protocol: Hold for SBP/HR < HOLD for SBP < : 90 HOLD for HR < : 60 Continued atorvastatin 40 mg tablet 40 mg PO DAILY allopurinol 100 mg tablet 100 mg PO DAILY vitamin B complex Tablet 1 tab PO DAILY finasteride 5 mg tablet 5 mg PO DAILY Eliquis 2.5 mg tablet 2.5 mg PO BID Discontinued metoprolol succinate 100 mg tablet extended release 24 hr 100 mg PO DAILY amlodipine 2.5 mg tablet 2.5 mg PO DAILY Discharge Orders: Discharge Order (Routine); Ordered 01/06/24 Ordered By: Isacc Atwood Diet: Advance to usual diet Activity on Discharge: As tolerated Stand Alone Forms: Patient Portal Discharge page Print Language: Chinese Care Plan Goals: Stop metoprolol succinate 100 mg daily. A script has been sent to your pharmacy for metoprolol tartrate 50 b.i.d.. Amlodipine has been DC Health Concerns: Resume all other medicines as taken prior to hospitalization. Drink plenty of fluids. Change position slowly. Plan of Treatment: Follow-up with PCP and arcgis developer next available Assessment: See discharge summary
--- NOTE | 2024-01-06 12:06 | W.MHC.F2F ---
Service Date Service Date: 01/06/24 Encounter Date of encounter: 01/06/24 Encounter: Acute hospitalization Reasons for Services Signs and symptoms assessed: Orthostatic vital signs and mentation Reason for detention: medication management, medication treatment and teach disease management Reason for physical therapy: home safety and mobility, gait/transfer training and ADL training Homebound: Leaving the home is medically contraindicated at this time without the asist of a device and/or another person due th the listed conditions above and below. Reason homebound: unsteady gait / fall risk, poor balance / fall risk and unable to drive Certification: Based on the above findings, I certify that this patient is confined to the home and needs intermittent detention care, physical therapy and/or speech therapy, or continues to need occupational therapy. The patient is under my care, and I have initiated the establishment of the plan of care. The patient will be followed by a physician who will periodically review the plan of care. Time Spent With Patient Time: Total time managing care of this patient today ____ minutes.
--- NOTE | 2024-01-06 14:46 | MHC.CM.PN ---
Addendum entered by Kathy Kaur 01/06/24 14:58: CM SPOKE TO PTS HCP, TATIANA [phone] HE IS AWARE [facility] ARE ORDERED AND AGREEABLE TO REFERRAL TO [facility] HE SAYS HE WILL BE TRANSPORTING PT AND WILL BE HERE IN 15 MINUTES, PTS NURSE AWARE AND WILL ENSURE PT IS DOWNSTAIRS TO MEET HIS TRANSPORT Original Note: PT TO DC HOME TODAY WITH [facility], REFERRAL MADE TO [facility] BASED ON NURSING AVAILABILITY/PT AGREEMENT FAMILY TO TRANSPORT
== END 2024-01-06 15:45 | disposition home health service (06) | DRG 312 ==
LOC: HO.ED 19:34 → HO.EDOVER 20:38 → HO.IMC 01-04 13:03
PROVIDERS: Student in an Organized Health Care Education/Training Program; Admitting Provider Internal Medicine; Emergency Provider Emergency Medicine Emergency Medical Services; PCP Family Medicine; Visit Provider Hospitalist
DX: I95.1 Orthostatic hypotension (principal); E86.0 Dehydration; I25.10 Atherosclerotic heart disease of native coronary artery without angina pectoris; I48.91 Unspecified atrial fibrillation; E78.2 Mixed hyperlipidemia; M10.9 Gout, unspecified; N40.0 Benign prostatic hyperplasia without lower urinary tract symptoms; F03.90 Unspecified dementia, unspecified severity, without behavioral disturbance, psychotic disturbance, mood disturbance, and anxiety; G25.2 Other specified forms of tremor; Z87.891 Personal history of nicotine dependence; Z79.01 Long term (current) use of anticoagulants; Z79.899 Other long term (current) drug therapy
CPT/HCPCS: 36415; 70450; 71045; 80048; 80053; 80076; 81001; 82140; 82947; 83605; 83690; 84443; 84484; 85025; 85610; 86617; 86618; 87040; 93005; 93306; 99285; Q9957

== ENCOUNTER 2024-01-03 20:33 | Outpatient (BNV) | payer MEDICARE, OTHER, SELFPAY | END 2024-01-04 07:00 | PROVIDERS: Admitting Provider Internal Medicine; Emergency Provider Emergency Medicine Emergency Medical Services; PCP Family Medicine; Visit Provider Internal Medicine Cardiovascular Disease | DX: I35.2 Nonrheumatic aortic (valve) stenosis with insufficiency (principal); I34.0 Nonrheumatic mitral (valve) insufficiency | CPT/HCPCS: 93306 ==

== ENCOUNTER → 2024-01-03 20:33 | Outpatient (BNV) | payer MEDICARE, OTHER, SELFPAY | PROVIDERS: Admitting Provider Internal Medicine; Emergency Provider Emergency Medicine Emergency Medical Services; PCP Family Medicine; Visit Provider Internal Medicine | DX: I48.91 Unspecified atrial fibrillation (principal); R55 Syncope and collapse | CPT/HCPCS: 99223; 99233; 99239; G0180 ==

== ENCOUNTER → 2024-01-03 20:33 | Outpatient (BNV) | payer MEDICARE, OTHER, SELFPAY | PROVIDERS: Admitting Provider Internal Medicine; Emergency Provider Emergency Medicine Emergency Medical Services; PCP Family Medicine; Visit Provider Internal Medicine Cardiovascular Disease | DX: I48.91 Unspecified atrial fibrillation (principal); R55 Syncope and collapse; R94.31 Abnormal electrocardiogram [ECG] [EKG] | CPT/HCPCS: 93010; 99222; 99232; 99233 ==